=== PATIENT | male | born 1955 | race African-American/Black ===

== ENCOUNTER 2016-03-22 12:37 | Emergency (ER) | payer MEDICARE, MEDICAID ==
[~2016-03-22 12:37] MED LIST: Sodium Chloride 0.9% 1,000 ML BAG ONE
[2016-03-22] MEDS ORDERED: Ondansetron HCl/PF 4 MG/2 ML Vial ONE (13:16)
[2016-03-22 13:24] LABS: #Basophils 0.1 thou/uL (0.0-0.2); #Monocytes 0.4 thou/uL (0.11-0.59); #Neutrophils 6.3 thou/uL (1.40-6.50); %Eosinophils 0.4 % (0.0-10.0); %Lymphocytes 22.4 % (21.0-51.0); %Neutrophils 71.1 % (42.0-75.0); Mean Corpuscular HGB CONC 32.8 g/dL (32.0-36.0); Mean Corpuscular Hemoglobin 30.8 pg (27.0-31.0); Mean Corpuscular Volume 93.8 fl (80.0-94.0); Mean Platelet Volume 8.7 fL (7.4-10.4); Platelet Count 210 thou/uL (130-400); RBC Distribution Width 12.6 % (11.5-14.5); Red Blood Cell (RBC) Count 3.59 mill/uL (4.70-6.10); White Blood Cell (WBC) Count 8.8 thou/uL (4.8-10.8)
[2016-03-22 13:34] LABS: ALT (SGPT) 65 U/L (0-55); AST (SGOT) 58 U/L (5-34); Alkaline Phosphatase 266 U/L (40-150); Anion Gap 18 mmol/L (10-20); BUN (Urea Nitrogen) 12 mg/dL (8.4-25.7); Bilirubin, Total 1.8 mg/dL (0.2-1.2); Calc. Creatinine Clearance 0 mL/min (70-130); Calcium 6.9 mg/dL (7.8-10.44); Carbon Dioxide 21 mmol/L (22-29); Chloride 103 mmol/L (98-107); Estimated GFR-MDRD 51; Globulin 2.7 g/dL (2.4-3.5); Glucose 109 mg/dL (70-105); Potassium 3.7 mmol/L (3.5-5.1); Protein, Total 6.7 g/dL (6.0-8.3); Sodium 138 mmol/L (136-145)
[2016-03-22] MEDS ORDERED: Calcium Chloride 1 GM/10 ML Abboject SYRINGE ONE (14:04)
[2016-03-22] MEDS ORDERED: Magnesium Sulfate 2 GM/NS 0.9% 50 ML BAG ONE (15:30)
--- NOTE | 2016-03-22 16:27 | CT ---
CT ABDOMEN AND PELVIS NONCONTRAST 03/22/16 HISTORY: Abdominal pain. Vomiting. COMPARISON: 04/07/15 FINDINGS: There is now distention of the renal collecting systems, ureters, and urinary bladder, somewhat symm etric. Urinary bladder measures up to 19.2 cm in length. No radiopaque stones are evident. Lack of IV contrast limits evaluation for other abnormalities. Oral contrast was administered and ex tends through the bowel and into an ostomy bag in the right lower quadrant. Small nonobstructed para stomal hernia is apparent. Fluid distention of a rectal pouch is slightly greater than on the prior study. There are degenerati ve changes of the lumbar spine. IMPRESSION: 1. Right lower quadrant ileostomy with parastomal hernia. No evidence of obstruction. 2. Increasing fluid distention of the rectal pouch. 3. Urinary retention with markedly distended urinary bladder. POS: [facility]
--- NOTE | 2016-03-22 18:13 | ERRECORD ---
[facility] EMERGENCY RECORD HPI NAUSEA/VOMITING/DIARRHEA (12:58 SHAN) CHIEF COMPLAINT: Patient presents for evaluation of nausea, Patient presents for evaluation of vomiting, Patient presents for evaluation of since about 11:30 today;. HISTORIAN: History provided by patient, History provided by patient's family. TIME COURSE: Gradual onset of symptoms. EXACERBATED BY: Patient's condition exacerbated by nothing. RELIEVED BY: Patient's condition relieved by nothing. ROS (12:59 SHAN) CONSTITUTIONAL: Negative constitutional review of systems, Historian denies chills, denies fever. EYES: Negative eye review of systems. ENT: Negative ears, nose, throat review of systems. CARDIOVASCULAR: Negative cardiovascular review of systems, Historian denies chest pain, denies palpitations. RESPIRATORY: Negative respiratory review of systems, Historian denies cough, denies shortness of breath. GI: Negative gastrointestinal review of systems, Historian denies abdominal pain, Historian denies constipation, Historian denies diarrhea. Relates nausea and vomiting. MUSCULOSKELETAL: Negative musculoskeletal review of systems. SKIN: Negative skin review of systems. NEUROLOGIC: Negative neurologic review of systems. ENDOCRINE: Negative endocrine review of systems. HEMO/LYMPHATIC: Normal hematologic/lymphatic system review. PSYCHIATRIC: Negative psychiatric review of systems. NOTES: All other ROS is negative except as listed in HPI. PAST MEDICAL HISTORY MEDICAL HISTORY: Notes: SHORT BOWERL SYNDROME, Constipation, MR, SCHIZOEFFECTIVE,, Past medical history includes history of hypertension. Notes: recurrent ileus w/multiple hospitalizations, colectomy for constipation...ileal-rectal anastomosis, Conor Stevens and Vitor. Past medical history also includes heart disease, lysis of adhesions. Notes: small bowel resection, ileostomy, ARF and CKD. according to previous history, garden center manager not at bedside to confirm history (career developer was present at [place]). (12:48 MDEB) MALE SURGICAL HISTORY: 3 EXP LAP SURGERIES - 2005, AND 2009, Surgical history of cholecystectomy, Date of surgery 2005, COLON REMOVED./ ileostomy - RLQ according to previous history, garden center manager not at bedside to confirm history (career developer was present at [place]). COLOSTOMY. (12:48 MDEB) PSYCHIATRIC HISTORY: MR and schizoaffective according to previous history, garden center manager not at bedside to confirm history (career developer was present at [place]). (12:48 MDEB) SOCIAL HISTORY: Patient denies alcohol use, Patient denies drug &a-1R&a+25V*p+0X*v1218B*c202B*c15G*c2P*p-0X&a-25V&a+1R Name: Zac Valdes : 1955 M60 MedRec: [id number] AcctNum: [id number] Prepared: SunMar 22, 2016 18:23 by Interface Page 1 of 4 pMD [facility] EMERGENCY RECORD use, Patient has no smoking history, Patient has no smoking history, Patient denies alcohol use, Patient denies drug use, Social History includes lives with garden center manager. according to previous history, garden center manager not at bedside to confirm history (career developer was present at [place]). (12:48 MDEB) FAMILY HISTORY: Family history is non-contributory to this case. (12:48 MDEB) NOTES: I have reviewed and agree with the PMH/PSxH/FamHx/SocHx obtained by the nurse. (12:59 SHAN) KNOWN ALLERGIES ALLERGIES: (Unconfirmed) ceftriaxone sodium (Unconfirmed) FOOD ALLERGIES: (Unconfirmed) LATEX ALLERGY? (Unconfirmed) NKDA (Unconfirmed) No Known Allergies (Unconfirmed) No Known Drug Allergies CURRENT MEDICATIONS Super Thera Raheel M: TABLET : ORAL Patient Dose: 1 tab(s) Oral once a day (in the morning). (14:16 MDEB) OLANZapine: TABLET : Strength - 7.5 mg : ORAL Patient Dose: 7.5 mg Oral once a day. (14:16 MDEB) pantoprazole: TABLET, DELAYED RELEASE (ENTERIC COATED) : Strength - 40 mg : ORAL Patient Dose: 1 tab(s) Oral once a day. (14:17 MDEB) Lactinex: TABLET, CHEWABLE : Strength - 1 million cell : ORAL Patient Dose: 1 tab(s) Oral 2 times a day. (14:30 MDEB) Questran Light: POWDER IN PACKET (EA) : Strength - 4 gram : ORAL Patient Dose: 2 ea Oral 2 times a day. (14:32 MDEB) Boost: LIQUID (ML) : ORAL Patient Dose: 1 ea Oral once a day. (14:32 MDEB) morphine (PF) in NaCl, iso-osm: SYRINGE (ML) : Strength - 800 mg/20 mL (40 mg/mL) : [20 mL(s)] : INTRATHECAL Patient Dose: 0.6 mL Oral 4 times a day. (14:33 MDEB) magnesium oxide: TABLET : Strength - 400 mg : ORAL Patient Dose: 2 tab(s) Oral once a day. (14:34 MDEB) VITAL SIGNS (12:45 MDEB) VITAL SIGNS: BP: 139/67, Pulse: 65, Resp: 20, Temp: 98.4 (Tympanic), Pain: 6, O2 sat: 98 on Room Air, Time: 03/22/2016 12:45. &a-1R&a+25V*p+0X*e6642S*c202B*c15G*c2P*p-0X&a-25V&a+1R Name: Zac Valdes : 1955 M60 MedRec: [id number] AcctNum: [id number] Prepared: SunMar 22, 2016 18:23 by Interface Page 2 of 4 pMD [facility] EMERGENCY RECORD PHYSICAL EXAM (12:59 SHAN) CONSTITUTIONAL: Vital signs reviewed, Patient appears non toxic, Patient alert and oriented to person, place and time, Pt is in no apparent distress. HEAD: Head exam included findings of head atraumatic, normocephalic. EYES: Eye exam included findings of eyelids normal to inspection, Pupils equally round and reactive to light, Extraocular muscles intact. ENT: ENT exam normal, Nose exam normal, no nasal deformity, no bleeding from nares, Pharynx exam normal, Mouth exam normal, mucous membranes moist. NECK: Neck exam included findings of normal range of motion, Trachea midline. RESPIRATORY CHEST: Respiratory and chest exam normal, Breath sounds clear, No wheezing, No rales, Chest exam included findings of chest movement symmetrical, Chest expansion equal. CARDIOVASCULAR: Cardiovascular assessment normal, Cardiovascular exam included findings of heart rate regular rate and rhythm, Heart sounds normal. ABDOMEN MALE: Abdominal exam included findings of abdomen nontender, Bowel sounds normal, no mass, no pulsatile masses, no peritoneal signs, no rigidity, no guarding, no rebound, has right sided ileostomy. BACK: Back exam included findings of normal inspection, range of motion normal, no costovertebral angle tenderness. UPPER EXTREMITY: Upper extremity exam included findings of inspection normal, Range of motion normal. LOWER EXTREMITY: Lower extremity exam included findings of inspection normal, Range of motion normal. NEURO: Neuro exam findings include patient oriented to person, place and time, Speech with chronic stutter, no focal motor deficits, no focal sensory deficits. SKIN: Skin exam included findings of skin warm, dry, and normal in color. LYMPHATIC: Lymphatic exam normal. PSYCHIATRIC: Psychiatric exam included findings of patient oriented to person place and time, Normal affect. MEDICATION ADMINISTRATION SUMMARY Drug Name: *2 grams magsulfat in water (premixed 50, Dose Ordered: * , Route: IV Fluid Infusion, Status: Given, Time: 15:39 03/22/2016, Drug Name: Normal Saline, Dose Ordered: 1 L, Route: IV Fluid Infusion, Status: Given, Time: 14:20 03/22/2016, Drug Name: *calcium chloride intravenous, Dose Ordered: 1 g, Route: IV Fluid Infusion, Status: Given, Time: 14:05 03/22/2016, Drug Name: Normal Saline, Dose Ordered: 1000 mL, Route: IV Fluid Infusion, Status: Given, Time: 13:25 03/22/2016, &a-1R&a+25V*p+0X*z1689P*c202B*c15G*c2P*p-0X&a-25V&a+1R Name: Zac Valdes : 1955 M60 MedRec: [id number] AcctNum: [id number] Prepared: SunMar 22, 2016 18:23 by Interface Page 3 of 4 pMD [facility] EMERGENCY RECORD Drug Name: Zofran intravenous, Dose Ordered: 8 mg, Route: IV Push, Status: Given, Time: 13:20 03/22/2016, *Additional information available in notes, Detailed record available in Medication Service section. DOCTOR NOTES TEXT: Discussed with Dr. Rossi; plan to allow home care with early follow up; and he recommended labs prior to his office visit tomorrow. NO evidence of obstruction; suspect that problem was resolved in the past with the surgeries; now the issue is more of a short gut syndrome with calcium and magnesium and fluid loss problems. (16:49 SHAN) Adult male with multiple episodes of small bowel obstruction by history. Has ileostomy. Stutters markedly. Hx from patient and family limited. 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 (13:52 KENTON) Labs better; will procede with Dr. Rossi's recommendation. (17:56 KENTON) DATA REVIEWED: Lab data reviewed, Xray data reviewed, Reviewed EKG. (16:49 KENTON) Lab data reviewed, Xray data reviewed, Reviewed EKG. (17:56 KENTON) PROBLEM LIST No recorded problems DIAGNOSIS (17:54 KENTON) FINAL: PRIMARY: short gut syndrome, ADDITIONAL: dehydration with increased serum creatinine, hypocalemia, hypomagnasemia. PRESCRIPTION No recorded prescriptions DISPOSITION PATIENT: Disposition Type: Discharge, Disposition: *Discharge Home. (17:54 KENTON) Patient left the department. (18:15 DARIANA) Bone: DARIANA=NYA [place], [place] FUNG=MD Krupa, Magen &a-1R&a+25V*p+0X*[id number]*c202B*c15G*c2P*p-0X&a-25V&a+1R Name: Zac Valdes : 1955 M60 MedRec: [id number] AcctNum: [id number] Prepared: SunMar 22, 2016 18:23 by Interface Page 4 of 4 pMD [facility]TDD
--- NOTE | 2016-03-22 18:19 | PICIS ---
[facility] EMERGENCY RECORD COMMUNICATIONS (15:28 MDEB) COMMUNICATIONS: Critical lab value, received at 1523, received from MELINDA, Critical lab result: MAGNESIUM LESS THAN 0.7, given to DR GENTILE, results read back and verified, no orders received, 2 G MAG ORDERED. TRIAGE (12:48 MDEB) PATIENT: NAME: Zac Valdes, AGE: 60, GENDER: male, : Sat 1955, TIME OF GREET: SunMar 22, 2016 12:37, PREFERRED LANGUAGE: Welsh, RACE: Black or , ETHNICITY: Not or , ECODE BILLING MAP: [facility], SSN: [id number], Zip Code: [address], KG WEIGHT: 94.35, PHONE: , , , PERSON ID: [id number], PCP: MD Rossi Grover. (12:48 MDEB) TRIAGE NOTES: N/V X2 TODAY SINCE 11:30. (12:48 MDEB) COMPLAINT: VOMITING. (12:48 MDEB) ADMISSION: URGENCY: 3 Urgent, ADMISSION SOURCE: Home, TRANSPORT: Walk-in, BED: TRIAGE. (12:48 MDEB) PAIN: Patient complains of pain described as, aching, cramping, on a scale 0-10 patient rates pain as 6. (12:48 MDEB) IMMUNIZATIONS: Flu vaccine up to date, Tetanus immunization up to date. (12:48 MDEB) TRIAGE SCREENING: Patient denies suicidal ideation, Patient denies presence of domestic violence. (12:48 MDEB) PROVIDERS: TRIAGE NURSE: Africa Pierce RN. (12:48 MDEB) VITAL SIGNS: BP 139/67, Pulse 65, Resp 20, Temp 98.4, (Tympanic), Pain 6, O2 Sat 98, on Room Air, Time 03/22/2016 12:45. (12:45 MDEB) PREVIOUS VISIT ALLERGIES: ceftriaxone sodium. (12:48 MDEB) KNOWN ALLERGIES ALLERGIES: (Unconfirmed) ceftriaxone sodium (Unconfirmed) FOOD ALLERGIES: (Unconfirmed) LATEX ALLERGY? (Unconfirmed) NKDA (Unconfirmed) No Known Allergies (Unconfirmed) No Known Drug Allergies CURRENT MEDICATIONS Super Thera Raheel M: TABLET : ORAL Patient Dose: 1 tab(s) Oral once a day (in the morning). (14:16 MDEB) OLANZapine: TABLET : Strength - 7.5 mg : ORAL Patient Dose: 7.5 mg Oral once a day. (14:16 MDEB) pantoprazole: TABLET, DELAYED RELEASE (ENTERIC COATED) : Strength - 40 mg : ORAL Patient Dose: 1 tab(s) Oral once a day. (14:17 MDEB) &a-1R&a+25V*p+0X*k4850F*c202B*c15G*c2P*p-0X&a-25V&a+1R Name: Zac Valdes : 1955 M60 MedRec: [id number] AcctNum: [id number] Prepared: SunMar 22, 2016 18:30 by Interface Page 1 of 13 pMD [facility] EMERGENCY RECORD Lactinex: TABLET, CHEWABLE : Strength - 1 million cell : ORAL Patient Dose: 1 tab(s) Oral 2 times a day. (14:30 MDEB) Questran Light: POWDER IN PACKET (EA) : Strength - 4 gram : ORAL Patient Dose: 2 ea Oral 2 times a day. (14:32 MDEB) Boost: LIQUID (ML) : ORAL Patient Dose: 1 ea Oral once a day. (14:32 MDEB) morphine (PF) in NaCl, iso-osm: SYRINGE (ML) : Strength - 800 mg/20 mL (40 mg/mL) : [20 mL(s)] : INTRATHECAL Patient Dose: 0.6 mL Oral 4 times a day. (14:33 MDEB) magnesium oxide: TABLET : Strength - 400 mg : ORAL Patient Dose: 2 tab(s) Oral once a day. (14:34 MDEB) VITAL SIGNS (12:45 MDEB) VITAL SIGNS: BP: 139/67, Pulse: 65, Resp: 20, Temp: 98.4 (Tympanic), Pain: 6, O2 sat: 98 on Room Air, Time: 03/22/2016 12:45. NURSING ASSESSMENT: ABDOMEN (12:51 MDEB) CONSTITUTIONAL: Patient arrives ambulatory, Gait steady, History obtained from patient, Patient appears, uncomfortable, Patient cooperative, Patient alert, Oriented to person, place and time, Skin warm, Skin dry, Skin normal in color, Mucous membranes pink, Mucous membranes moist, Patient is well-groomed, Patient complains of N/V X 2 SINCE 11:30, PT WITH HX SHORT BOWEL SYNDROME. PAIN: cramping pain, on a scale 0-10 patient rates pain as 6, Pain exacerbated by nothing, Nothing has been tried to alleviate the pain. ABDOMEN: Abdomen assessment findings include abdomen symmetrical, Abdomen soft, Bowel sound normal, Associated with nausea, Associated with vomiting, history of vomiting, Number of times: 2, vomiting food. NOTES: Emotional support needed and given, Patient tolerated procedure well. SAFETY: Cart/Stretcher in lowest position, Family at bedside, Call light within reach, Hospital ID band on. NURSING PROCEDURE: SPOTLIGHT OPERATOR (12:48 MDEB) PATIENT IDENTIFIER: Patient actively involved in identification process, Patient's identity verified by patient stating name, Patient's identity verified by hospital ID bracelet. SPOTLIGHT OPERATOR: Patient placed on diagnostic cardiac sonographer, Heart rate: 65, showing sinus arrhythmia, Patient placed on non-invasive blood pressure monitor, Patient placed on continuous pulse oximetry. FOLLOW-UP: After procedure, alarms set and on, After procedure, &a-1R&a+25V*p+0X*x4578H*c202B*c15G*c2P*p-0X&a-25V&a+1R Name: Zac Valdes : 1955 M60 MedRec: [id number] AcctNum: [id number] Prepared: SunMar 22, 2016 18:30 by Interface Page 2 of 13 D [facility] EMERGENCY RECORD patient tolerating monitoring. NOTES: Emotional support needed and given, Patient tolerated procedure well. NURSING PROCEDURE: DISCHARGE NOTE (18:00 MDEB) DISCHARGE: Patient discharged to home, ambulating without assistance, family driving, accompanied by guardian, Summary of Care printed/ provided, Patient requested and was provided an electronic copy of Discharge Instructions, Transition record given to patient, Discharge instructions given to patient, Discharge instructions given to legal guardian, Simple or moderate discharge teaching performed, INCREASE SUPPLEMENT LEVELS, Above person(s) verbalized understanding of discharge instructions and follow-up care, Patient treated and evaluated by physician. BELONGINGS: Belongings remain with patient, Valuables remain with patient. NOTES: Emotional support needed and given, Patient tolerated procedure well. NURSING PROCEDURE: EKG CHART (14:52 MDEB) PATIENT IDENTIFIER: Patient actively involved in identification process, Patient's identity verified by patient stating name, Patient's identity verified by hospital ID bracelet. EKG: EKG indicated for HYPOCALCEMIA, 12 lead EKG performed on the left chest. FOLLOW-UP: After procedure, EKG for interpretation given to Dr. GENTILE. NOTES: Emotional support needed and given, Patient tolerated procedure well. SAFETY: Side rails up, Cart/Stretcher in lowest position, Family at bedside, Call light within reach, Hospital ID band on. NURSING PROCEDURE: IV PATIENT IDENITIFIER: Patient actively involved in identification process, Patient's identity verified by patient stating name, Patient's identity verified by hospital ID bracelet. (12:50 MDEB) Patient actively involved in identification process, Patient's identity verified by patient stating name, Patient's identity verified by hospital ID bracelet. (17:55 MDEB) IV SITE 1: IV therapy indicated for hydration, IV therapy indicated for medication administration, IV established, to the right forearm, using a 20 gauge catheter, in one attempt, IV site prepped with ALCOHOL, Saline lock established, Flushed with normal saline (mls): 10, Labs drawn at time of placement, labeled in the presence of the patient and sent to lab. (12:50 MDEB) FOLLOW-UP SITE 1: After procedure, sterile transparent dressing applied. (12:50 MDEB) IV discontinued, due to patient being discharged, catheter intact. (17:55 MDEB) NOTES: Emotional support needed and given, Patient tolerated &a-1R&a+25V*p+0X*k6837F*c202B*c15G*c2P*p-0X&a-25V&a+1R Name: Zac Valdes : 1955 M60 MedRec: [id number] AcctNum: [id number] Prepared: SunMar 22, 2016 18:30 by Interface Page 3 of 13 pMD [facility] EMERGENCY RECORD procedure well. (12:50 MDEB) Emotional support needed and given, Patient tolerated procedure well. (17:55 MDEB) SAFETY: Side rails up, Cart/Stretcher in lowest position, Family at bedside, Call light within reach, Hospital ID band on. (12:50 MDEB) NURSING PROCEDURE: NURSE NOTES NURSES NOTES: Notes: CALCIUM CHLORIDE ADDED TO EXISTING FLUIDS PER MD ORDER - WILL HANG SECOND LITER BEHIND THIS. (14:05 MDEB) Notes: PT TO RESTROOM TO URINATE FOLLOWING CT STUDY. (16:15 MDEB) NURSING PROCEDURE: TRANSPORT TO TESTS (16:00 MDEB) PATIENT IDENTIFIER: Patient actively involved in identification process, Patient's identity verified by patient stating name, Patient's identity verified by hospital ID bracelet. TRANSPORT TO TESTS: Transport indicated to facilitate diagnosis, Patient transported to CT scan, via wheelchair, Accompanied by x-ray cooling tower technician. NOTES: Emotional support needed and given, Patient tolerated procedure well. ORDER DETAILS Order Name: Calcium, Status: Active, Time: 16:46 03/22/2016, User: KENTON, - Ordered for: MD Gentile Stanley, - Entered by: MD Gentile Stanley - [facility] Mar 22, 2016 16:46, - Quantity: 1, Order Name: SPOTLIGHT OPERATOR ED, Status: Done, Time: 13:35 03/22/2016, User: DARIANA, - Ordered for: MD Gentile Stanley, - Entered by: MD Gentile Stanley - [facility] Mar 22, 2016 12:57, - Quantity: 1, Order Name: CBC with Differential, Status: Active, Time: 12:57 03/22/2016, User: KENTON, - Ordered for: MD Gentile Stanley, - Entered by: MD Gentile Stanley - [facility] Mar 22, 2016 12:57, - Quantity: 1, Order Name: Comprehensive Metabolic Panel, Status: Active, Time: 12:57 03/22/2016, User: KENTON, - Ordered for: MD Gentile Stanley, - Entered by: MD Gentile Stanley - [facility] Mar 22, 2016 12:57, - Quantity: 1, Order Name: Creatinine, Status: Active, Time: 16:46 03/22/2016, User: KENTON, - Ordered for: MD Gentile Stanley, - Entered by: MD Gentile Stanley - [facility] Mar 22, 2016 16:46, &a-1R&a+25V*p+0X*c3111L*c202B*c15G*c2P*p-0X&a-25V&a+1R Name: Zac Valdes : 1955 M60 MedRec: [id number] AcctNum: [id number] Prepared: SunMar 22, 2016 18:30 by Interface Page 4 of 13 D [facility] EMERGENCY RECORD - Quantity: 1, Order Name: CT Abdomen Pelvis W Con, Status: Canceled, Time: 15:57 03/22/2016, User: System, - Ordered for: MD Gentile Stanley, - Entered by: MD Gentile Stanley - [facility] Mar 22, 2016 13:54, - Quantity: 1, Order Name: EKG 12 Lead in Emergency Room, Status: Active, Time: 14:23 03/22/2016, User: KENTON, - Ordered for: MD Gentile Stanley, - Entered by: MD Gentile Stanley - [facility] Mar 22, 2016 14:23, - Quantity: 1, Order Name: Magnesium, Status: Active, Time: 16:45 03/22/2016, User: KENTON, - Ordered for: MD Gentile Stanley, - Entered by: MD Gentile Stanley - [facility] Mar 22, 2016 16:45, - Quantity: 1, Order Name: Magnesium, Status: Active, Time: 13:59 03/22/2016, User: KENTON, - Ordered for: MD Gentile Stanley, - Entered by: MD Gentile Stanley - [facility] Mar 22, 2016 13:59, - Quantity: 1, Order Name: SALINE LOCK, Status: Done, Time: 13:35 03/22/2016, User: DARIANA, - Ordered for: MD Gentile Stanley, - Entered by: MD Gentile Stanley - [facility] Mar 22, 2016 12:57, - Quantity: 1. MEDICATION ADMINISTRATION SUMMARY Drug Name: *2 grams magsulfat in water (premixed 50, Dose Ordered: * , Route: IV Fluid Infusion, Status: Given, Time: 15:39 03/22/2016, Drug Name: Normal Saline, Dose Ordered: 1 L, Route: IV Fluid Infusion, Status: Given, Time: 14:20 03/22/2016, Drug Name: *calcium chloride intravenous, Dose Ordered: 1 g, Route: IV Fluid Infusion, Status: Given, Time: 14:05 03/22/2016, Drug Name: Normal Saline, Dose Ordered: 1000 mL, Route: IV Fluid Infusion, Status: Given, Time: 13:25 03/22/2016, Drug Name: Zofran intravenous, Dose Ordered: 8 mg, Route: IV Push, Status: Given, Time: 13:20 03/22/2016, *Additional information available in notes, Detailed record available in Medication Service section. MEDICATION SERVICE 2 grams magsulfat in water (premixed 50ml): Free Text order: 2 grams magsulfat in water (premixed 50ml) : over 20 minutes : IV Fluid Infusion Ordered by: Magen Gentile MD Entered by: Magen Gentile MD SunMar 22, 2016 15:33 Documented as given by: Africa Pierce RN SunMar 22, 2016 15:39 Patient, Medication, Dose, Route and Time verified prior to &a-1R&a+25V*p+0X*d2273R*c202B*c15G*c2P*p-0X&a-25V&a+1R Name: Zac Valdes : 1955 M60 MedRec: [id number] AcctNum: [id number] Prepared: SunMar 22, 2016 18:30 by Interface Page 5 of 13 pMD [facility] EMERGENCY RECORD administration. Amount given: 2 G, initial medication, IV SITE #1 IVPB or drip, initial infusion, Premixed, via primary tubing, on an IV pump, Catheter placement confirmed via flush prior to administration, IV site without signs or symptoms of infiltration during medication administration, No swelling during administration, No drainage during administration, IV flushed after administration, Correct patient, time, route, dose and medication confirmed prior to administration, Patient advised of actions and side-effects prior to administration, Allergies confirmed and medications reviewed prior to administration, Patient in position of comfort, Side rails up, Cart in lowest position, Family at bedside. : Follow Up : _IV SITE #1:_, Medication infusion discontinued, on SunMar 22, 2016 16:30, 55 minutes, ., Total amount infused: 2 G, IV Line flushed after administration, Advised not to ambulate without assistance, Patient in position of comfort, Side rails up, Cart in lowest position, Family at bedside. (16:30 MDEB) calcium chloride intravenous: Order: calcium chloride intravenous (calcium chloride) - Dose: 1 g : IV Fluid Infusion Schedule: Bolus Notes: place in a liter normal saline bolus Ordered by: Magen Gentile MD Entered by: Magen Gentile MD SunMar 22, 2016 14:05 Documented as given by: Africa Pierce RN SunMar 22, 2016 14:05 Patient, Medication, Dose, Route and Time verified prior to administration. Amount given: 1 G, IV SITE #1 added to existing IV Fluid, Type: NS, Amount of fluid remainin ML, Catheter placement confirmed via flush prior to administration, IV site without signs or symptoms of infiltration during medication administration, No swelling during administration, No drainage during administration, IV flushed after administration, Correct patient, time, route, dose and medication confirmed prior to administration, Patient advised of actions and side-effects prior to administration, Allergies confirmed and medications reviewed prior to administration, Patient in position of comfort, Side rails up, Cart in lowest position. : Follow Up : _IV SITE #1:_, Medication infusion discontinued, on SunMar 22, 2016 14:20, 15 minutes, ., Total amount infused: 1 G, IV Line flushed after administration, Advised not to ambulate without assistance, Patient in position of comfort, Side rails up, Cart in lowest position, Family at bedside, MEDICATION WAS ADDED TO NS INFUSION PER MD ORDER. (14:20 MDEB) Normal Saline: Order: Normal Saline (0.9 % sodium chloride) - Dose: 1000 mL : IV Fluid Infusion Schedule: Bolus Ordered by: Magen Gentile MD Entered by: Magen Gentile MD SunMar 22, 2016 12:58 , Acknowledged by: Africa Pierce RN SunMar 22, 2016 13:14 Documented as given by: Africa Pierce RN SunMar 22, 2016 13:25 &a-1R&a+25V*p+0X*l6078F*c202B*c15G*c2P*p-0X&a-25V&a+1R Name: Zac Valdes : 1955 M60 MedRec: [id number] AcctNum: [id number] Prepared: SunMar 22, 2016 18:30 by Interface Page 6 of 13 pMD [facility] EMERGENCY RECORD Patient, Medication, Dose, Route and Time verified prior to administration. Amount given: 1000 ML, IV SITE #1 IV fluids established for hydration, IV SITE #1 into right forearm, IV SITE #1 1st bag hung, IV SITE #1 bolus of 1000 ml established, IV SITE #1 Rate of bolus, 1000 ml/hr, via primary tubing, IV SITE #1 on IV pump, Catheter placement confirmed via flush prior to administration, IV site without signs or symptoms of infiltration during medication administration, No swelling during administration, No drainage during administration, IV flushed after administration, Correct patient, time, route, dose and medication confirmed prior to administration, Patient advised of actions and side-effects prior to administration, Allergies confirmed and medications reviewed prior to administration, Patient in position of comfort, Side rails up, Cart in lowest position, Family at bedside. : Follow Up : _IV SITE #1:_, IV fluid infusion discontinued, on SunMar 22, 2016 14:20, 55 minutes, ., Total amount infused: 1000 ML, Advised not to ambulate without assistance, Patient in position of comfort, Side rails up, Cart in lowest position, Family at bedside. (14:20 MDMARINA) Normal Saline: Order: Normal Saline (0.9 % sodium chloride) - Dose: 1 L : IV Fluid Infusion Schedule: Bolus Ordered by: Magen Gentile MD Entered by: Magen Gentile MD SunMar 22, 2016 14:05 , Acknowledged by: Africa Pierce RN SunMar 22, 2016 14:10 Documented as given by: Africa Pierce RN SunMar 22, 2016 14:20 Patient, Medication, Dose, Route and Time verified prior to administration. Amount given: 1 L, IV SITE #1 IV fluids established for hydration, IV SITE #1 into right forearm, IV SITE #1 2nd bag hung, IV SITE #1 bolus of 1000 ml established, IV SITE #1 Rate of bolus, 1000 ml/hr, via primary tubing, IV SITE #1 on IV pump, Catheter placement confirmed via flush prior to administration, IV site without signs or symptoms of infiltration during medication administration, No swelling during administration, No drainage during administration, IV flushed after administration, Correct patient, time, route, dose and medication confirmed prior to administration, Patient advised of actions and side-effects prior to administration, Allergies confirmed and medications reviewed prior to administration, Patient in position of comfort, Side rails up, Cart in lowest position, Family at bedside. : Follow Up : _IV SITE #1:_, IV fluid infusion discontinued, on SunMar 22, 2016 15:30, Total fluid hydration time IV site 1 1 hour, 10 minutes, ., Total amount infused: 1000 ML, Advised not to ambulate without assistance, Patient in position of comfort, Side rails up, Cart in lowest position, Family at bedside. (15:30 DARIANA) Zofran intravenous: Order: Zofran intravenous (ondansetron HCl) - Dose: 8 mg : IV Push Schedule: Now &a-1R&a+25V*p+0X*o7953Y*c202B*c15G*c2P*p-0X&a-25V&a+1R Name: Zac Valdes : 1955 M60 MedRec: [id number] AcctNum: [id number] Prepared: SunMar 22, 2016 18:30 by Interface Page 7 of 13 pMD [facility] EMERGENCY RECORD Ordered by: Magen Gentile MD Entered by: Magen Gentile MD SunMar 22, 2016 12:58 , Acknowledged by: Africa Pierce RN SunMar 22, 2016 13:14 Documented as given by: Africa Pierce RN SunMar 22, 2016 13:20 Patient, Medication, Dose, Route and Time verified prior to administration. Amount wasted: 8 MG, IV SITE #1 IVP, initial medication, Slowly, Catheter placement confirmed via flush prior to administration, IV site without signs or symptoms of infiltration during medication administration, No swelling during administration, No drainage during administration, IV flushed after administration, Correct patient, time, route, dose and medication confirmed prior to administration, Patient advised of actions and side-effects prior to administration, Allergies confirmed and medications reviewed prior to administration, Patient in position of comfort, Side rails up, Cart in lowest position, Family at bedside. HPI NAUSEA/VOMITING/DIARRHEA (12:58 SHAN) CHIEF COMPLAINT: Patient presents for evaluation of nausea, Patient presents for evaluation of vomiting, Patient presents for evaluation of since about 11:30 today;. HISTORIAN: History provided by patient, History provided by patient's family. TIME COURSE: Gradual onset of symptoms. EXACERBATED BY: Patient's condition exacerbated by nothing. RELIEVED BY: Patient's condition relieved by nothing. ROS (12:59 SHAN) CONSTITUTIONAL: Negative constitutional review of systems, Historian denies chills, denies fever. EYES: Negative eye review of systems. ENT: Negative ears, nose, throat review of systems. CARDIOVASCULAR: Negative cardiovascular review of systems, Historian denies chest pain, denies palpitations. RESPIRATORY: Negative respiratory review of systems, Historian denies cough, denies shortness of breath. GI: Negative gastrointestinal review of systems, Historian denies abdominal pain, Historian denies constipation, Historian denies diarrhea. Relates nausea and vomiting. MUSCULOSKELETAL: Negative musculoskeletal review of systems. SKIN: Negative skin review of systems. NEUROLOGIC: Negative neurologic review of systems. ENDOCRINE: Negative endocrine review of systems. HEMO/LYMPHATIC: Normal hematologic/lymphatic system review. PSYCHIATRIC: Negative psychiatric review of systems. NOTES: All other ROS is negative except as listed in HPI. PAST MEDICAL HISTORY MEDICAL HISTORY: Notes: SHORT BOWERL SYNDROME, &a-1R&a+25V*p+0X*g0367F*c202B*c15G*c2P*p-0X&a-25V&a+1R Name: Zac Valdes : 1955 M60 MedRec: [id number] AcctNum: [id number] Prepared: SunMar 22, 2016 18:30 by Interface Page 8 of 13 pMD [facility] EMERGENCY RECORD Constipation, MR, SCHIZOEFFECTIVE,, Past medical history includes history of hypertension. Notes: recurrent ileus w/multiple hospitalizations, colectomy for constipation...ileal-rectal anastomosis, Conor Stevens and [facility]. Past medical history also includes heart disease, lysis of adhesions. Notes: small bowel resection, ileostomy, ARF and CKD. according to previous history, manager residential not at bedside to confirm history (senior caregiver was present at [facility]). (12:48 MDEB) MALE SURGICAL HISTORY: 3 EXP LAP SURGERIES - 2005, AND 2009, Surgical history of cholecystectomy, Date of surgery 2005, COLON REMOVED./ ileostomy - RLQ according to previous history, manager residential not at bedside to confirm history (senior caregiver was present at [facility]). COLOSTOMY. (12:48 MDEB) PSYCHIATRIC HISTORY: MR and schizoaffective according to previous history, manager residential not at bedside to confirm history (senior caregiver was present at [facility]). (12:48 MDEB) SOCIAL HISTORY: Patient denies alcohol use, Patient denies drug use, Patient has no smoking history, Patient has no smoking history, Patient denies alcohol use, Patient denies drug use, Social History includes lives with manager residential. according to previous history, manager residential not at bedside to confirm history (senior caregiver was present at [facility]). (12:48 MDEB) FAMILY HISTORY: Family history is non-contributory to this case. (12:48 MDEB) NOTES: I have reviewed and agree with the PMH/PSxH/FamHx/SocHx obtained by the nurse. (12:59 SHAN) PHYSICAL EXAM (12:59 SHAN) CONSTITUTIONAL: Vital signs reviewed, Patient appears non toxic, Patient alert and oriented to person, place and time, Pt is in no apparent distress. HEAD: Head exam included findings of head atraumatic, normocephalic. EYES: Eye exam included findings of eyelids normal to inspection, Pupils equally round and reactive to light, Extraocular muscles intact. ENT: ENT exam normal, Nose exam normal, no nasal deformity, no bleeding from nares, Pharynx exam normal, Mouth exam normal, mucous membranes moist. NECK: Neck exam included findings of normal range of motion, Trachea midline. RESPIRATORY CHEST: Respiratory and chest exam normal, Breath sounds clear, No wheezing, No rales, Chest exam included findings of chest movement symmetrical, Chest expansion equal. CARDIOVASCULAR: Cardiovascular assessment normal, Cardiovascular exam included findings of heart rate regular rate and rhythm, Heart sounds normal. ABDOMEN MALE: Abdominal exam included findings of abdomen nontender, Bowel sounds normal, no mass, no pulsatile masses, no peritoneal signs, no rigidity, no guarding, no rebound, has &a-1R&a+25V*p+0X*y3411S*c202B*c15G*c2P*p-0X&a-25V&a+1R Name: Zac Valdes : 1955 M60 MedRec: [id number] AcctNum: [id number] Prepared: SunMar 22, 2016 18:30 by Interface Page 9 of 13 pMD [facility] EMERGENCY RECORD right sided ileostomy. BACK: Back exam included findings of normal inspection, range of motion normal, no costovertebral angle tenderness. UPPER EXTREMITY: Upper extremity exam included findings of inspection normal, Range of motion normal. LOWER EXTREMITY: Lower extremity exam included findings of inspection normal, Range of motion normal. NEURO: Neuro exam findings include patient oriented to person, place and time, Speech with chronic stutter, no focal motor deficits, no focal sensory deficits. SKIN: Skin exam included findings of skin warm, dry, and normal in color. LYMPHATIC: Lymphatic exam normal. PSYCHIATRIC: Psychiatric exam included findings of patient oriented to person place and time, Normal affect. EVENTS TRANSFER: Triage to Emergency Triage. (SunMar 22, 2016 12:48 MDEB) Emergency Triage to Main ED -03. (12:49 MDEB) Removed from Emergency Main ED -03. (18:15 MDEB) DOCTOR NOTES TEXT: Discussed with Dr. Rossi; plan to allow home care with early follow up; and he recommended labs prior to his office visit tomorrow. NO evidence of obstruction; suspect that problem was resolved in the past with the surgeries; now the issue is more of a short gut syndrome with calcium and magnesium and fluid loss problems. (16:49 SHAN) Adult male with multiple episodes of small bowel obstruction by history. Has ileostomy. Stutters markedly. Hx from patient and family limited. 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 (13:52 SHAN) Labs better; will procede with Dr. Rossi's recommendation. (17:56 SHAN) DATA REVIEWED: Lab data reviewed, Xray data reviewed, Reviewed EKG. (16:49 SHAN) Lab data reviewed, Xray data reviewed, Reviewed EKG. (17:56 SHAN) PROBLEM LIST No recorded problems DIAGNOSIS (17:54 SHAN) FINAL: PRIMARY: short gut syndrome, ADDITIONAL: dehydration with increased serum creatinine, hypocalemia, hypomagnasemia. &a-1R&a+25V*p+0X*[id number]*c202B*c15G*c2P*p-0X&a-25V&a+1R Name: Zac Valdes : 1955 M60 MedRec: [id number] AcctNum: [id number] Prepared: SunMar 22, 2016 18:30 by Interface Page 10 of 13 pMD [facility] EMERGENCY RECORD DISPOSITION PATIENT: Disposition Type: Discharge, Disposition: *Discharge Home. (17:54 SHAN) Patient left the department. (18:15 MDEB) INSTRUCTION (17:56 SHAN) DISCHARGE: ELECTROLYTES. FO[facility]UP: [facility] [address] [place] [address], . SPECIAL: 1. increase tums to 2 three times a day 2. increase magnesium to 2 twice a day 3. obtain labs tomorrow am and see Dr. Rossi later tomorrow 4. return if problems develop. PRESCRIPTION No recorded prescriptions IMAGING HOME MEDS: Image captured from scanner. (14:42 MDEB) *EKG: Image captured from scanner. (14:57 MDEB) *DISCHARGE INSTRUCTIONS RECEIPT: Image captured from scanner. (18:06 MDEB) *SUPPLY CHARGE SHEET: Image captured from scanner. (18:07 MDEB) VITAL SIGNS: Image captured from scanner. (18:15 MDEB) Page 2 added. Image captured from scanner. (18:15 MDEB) ADMIN (17:57 SHAN) DIGITAL SIGNATURE: MD Krupa, Magen. RESULTS RADIOLOGY: CT Abdomen Pelvis WO Con Observe DT: SunMar 22, 2016 13:56, ABDPELWO CT ABDOMEN AND PELVIS NONCONTRAST 03/22/16 HISTORY: Abdominal pain. Vomiting. COMPARISON: 04/07/15 FINDINGS: There is now distention of the renal collecting systems, ureters, and urinary bladder, somewhat symm etric. Urinary bladder measures up to 19.2 cm in length. No radiopaque stones are evident. Lack of IV contrast limits evaluation for other abnormalities. Oral &a-1R&a+25V*p+0X*r1748Z*c202B*c15G*c2P*p-0X&a-25V&a+1R Name: Zac Valdes : 1955 M60 MedRec: [id number] AcctNum: [id number] Prepared: SunMar 22, 2016 18:30 by Interface Page 11 of 13 pMD [facility] EMERGENCY RECORD contrast was administered and ex tends through the bowel and into an ostomy bag in the right lower quadrant. Small nonobstructed para stomal hernia is apparent. Fluid distention of a rectal pouch is slightly greater than on the prior study. There are degenerati ve changes of the lumbar spine. IMPRESSION: 1. Right lower quadrant ileostomy with parastomal hernia. No evidence of obstruction. 2. Increasing fluid distention of the rectal pouch. 3. Urinary retention with markedly distended urinary bladder. POS: H . (16:35 SHAN) LABORATORY: CBC with Differential Collection DT: SunMar 22, 2016 13:13, White Blood Cell (WBC) Count 8.8 thou/uL, Range (4.8-10.8), *Red Blood Cell (RBC) Count 3.59 - L mill/uL, Range (4.70-6.10), *Hemoglobin 11.0 - L g/dL, Range (14.0-18.0), *Hematocrit 33.6 - L %, Range (42.0-52.0), Mean Corpuscular Volume 93.8 fl, Range (80.0-94.0), Mean Corpuscular Hemoglobin 30.8 pg, Range (27.0-31.0), Mean Corpuscular HGB CONC 32.8 g/dL, Range (32.0-36.0), RBC Distribution Width 12.6 %, Range (11.5-14.5), Platelet Count 210 thou/uL, Range (130-400), Mean Platelet Volume 8.7 fL, Range (7.4-10.4), %Neutrophils 71.1 %, Range (42.0-75.0), %Lymphocytes 22.4 %, Range (21.0-51.0), %Monocytes 5.0 %, Range (0.0-10.0), %Eosinophils 0.4 %, Range (0.0-10.0), %Basophils 1.0 %, Range (0.0-1.0), #Neutrophils 6.3 thou/uL, Range (1.40-6.50), #Lymphocytes 2.0 thou/uL, Range (1.20-3.40), #Monocytes 0.4 thou/uL, Range (0.11-0.59), #Eosinphils 0.0 thou/uL, Range (0.0-0.7), #Basophils 0.1 thou/uL, Range (0.0-0.2). (13:27 SHAN) Comprehensive Metabolic Panel Collection DT: SunMar 22, 2016 13:13, Sodium 138 mmol/L, Range (136-145), Potassium 3.7 mmol/L, Range (3.5-5.1), Chloride 103 mmol/L, Range (98-107), *Carbon Dioxide 21 - L mmol/L, Range (22-29), Anion Gap 18 mmol/L, Range (10-20), BUN (Urea Nitrogen) 12 mg/dL, Range (8.4-25.7), *Creatinine 1.67 - H mg/dL, Range (0.7-1.3), Estimated GFR-MDRD 51 , Reference Range for Estimated GFR: Greater than 90, mL/min/1.73 m2 &a-1R&a+25V*p+0X*b0683K*c202B*c15G*c2P*p-0X&a-25V&a+1R Name: Zac Valdes : 1955 M60 MedRec: [id number] AcctNum: [id number] Prepared: SunMar 22, 2016 18:30 by Interface Page 12 of 13 pMD [facility] EMERGENCY RECORD NOTE: The MDRD equation has not been validated for use, with the elderly (over 70 years of age), women, patients with, serious comorbid condition or persons with extremes of body size, muscle, mass, or nutritional status. , *Glucose 109 - H mg/dL, Range (70-105), *Calcium 6.9 - L mg/dL, Range (7.8-10.44), *Bilirubin, Total 1.8 - H mg/dL, Range (0.2-1.2), Protein, Total 6.7 g/dL, Range (6.0-8.3), NOTE: Plasma values are generally 0.3 to 0.5 g/dL higher than serum values, due to the presence of fibrinogen. , Albumin 4.0 g/dL, Range (3.5-5.0), Globulin 2.7 g/dL, Range (2.4-3.5), Alb/Glob Ratio 1.5 g/dL, Range (1.2-2.2), *Alkaline Phosphatase 266 - H U/L, Range (40-150), *AST (SGOT) 58 - H U/L, Range (5-34), *ALT (SGPT) 65 - H U/L, Range (0-55). (13:55 DARIANA) Magnesium Collection DT: SunMar 22, 2016 14:05, *Magnesium Less than 0.7 - L mg/dL, Range (1.6-2.6), CALLED TO AND VRB FROM [place] PIERCE RN IN ER AT 1530 03-22-16/MAD.[facility]. (15:37 KENTON) Bone: DARIANA=[place]A [place], [place] FUNG=MD Krupa, Magen &a-1R&a+25V*p+0X*x4970U*c202B*c15G*c2P*p-0X&a-25V&a+1R Name: Zac Valdes : 1955 M60 MedRec: [id number] AcctNum: [id number] Prepared: SunMar 22, 2016 18:30 by Interface Page 13 of 13 pMD [facility]TDD
== END 2016-03-22 18:00 | disposition home or self-care (01) ==
LOC: MADERS 12:37
DX: K91.2 Postsurgical malabsorption, not elsewhere classified (principal); E83.51 Hypocalcemia; E83.42 Hypomagnesemia; I12.9 Hypertensive chronic kidney disease with stage 1 through stage 4 chronic kidney disease, or unspecified chronic kidney disease; N18.9 Chronic kidney disease, unspecified
CPT/HCPCS: 36415; 74176; 80053; 83735; 85025; 93005; 96361; 96365; 96375; J2405; J3475; J7050

== ENCOUNTER 2016-04-05 07:57 | Outpatient (CLI) | payer MEDICARE, MEDICAID ==
[2016-04-05 08:50] LABS: ALT (SGPT) 70 U/L (0-55); AST (SGOT) 70 U/L (5-34); Albumin 4.5 g/dL (3.5-5.0); Alkaline Phosphatase 305 U/L (40-150); Anion Gap 19 mmol/L (10-20); BUN (Urea Nitrogen) 15 mg/dL (8.4-25.7); Bilirubin, Total 2.2 mg/dL (0.2-1.2); Calc. Creatinine Clearance 0 mL/min (70-130); Calcium 8.7 mg/dL (7.8-10.44); Carbon Dioxide 25 mmol/L (22-29); Chloride 101 mmol/L (98-107); Estimated GFR-MDRD 52; Globulin 3.1 g/dL (2.4-3.5); Glucose 97 mg/dL (70-105); Potassium 4.4 mmol/L (3.5-5.1); Protein, Total 7.6 g/dL (6.0-8.3); Sodium 141 mmol/L (136-145)
== END 2016-04-05 07:58 | disposition home or self-care (01) ==
LOC: MADLABBHPM 07:57
PROVIDERS: ATTEND Family Medicine
DX: Z48.815 Encounter for surgical aftercare following surgery on the digestive system (principal); Z93.2 Ileostomy status
CPT/HCPCS: 36415; 80053

== ENCOUNTER 2016-04-27 09:23 | Emergency (ER) | payer MEDICARE, MEDICAID ==
[2016-04-27] MEDS ORDERED: Ondansetron ODT 4 MG TAB ONE (09:42)
== END 2016-04-27 10:52 | disposition home or self-care (01) ==
LOC: MADERS 09:23
DX: K52.9 Noninfective gastroenteritis and colitis, unspecified (principal); I12.9 Hypertensive chronic kidney disease with stage 1 through stage 4 chronic kidney disease, or unspecified chronic kidney disease; N18.9 Chronic kidney disease, unspecified; Z90.49 Acquired absence of other specified parts of digestive tract; Z79.899 Other long term (current) drug therapy
CPT/HCPCS: 99283; Q0162

== ENCOUNTER 2016-05-11 07:02 | Outpatient (CLI) | payer MEDICARE, MEDICAID ==
[2016-05-11 08:13] LABS: ALT (SGPT) 314 U/L (0-55); AST (SGOT) 131 U/L (5-34); Albumin 4.4 g/dL (3.5-5.0); Alkaline Phosphatase 379 U/L (40-150); Anion Gap 17 mmol/L (10-20); BUN (Urea Nitrogen) 24 mg/dL (8.4-25.7); Bilirubin, Total 1.8 mg/dL (0.2-1.2); Calc. Creatinine Clearance 0 mL/min (70-130); Calcium 10.7 mg/dL (7.8-10.44); Carbon Dioxide 31 mmol/L (22-29); Chloride 90 mmol/L (98-107); Estimated GFR-MDRD 37; Glucose 141 mg/dL (70-105); Magnesium 1.2 mg/dL (1.6-2.6); Potassium 3.3 mmol/L (3.5-5.1); Protein, Total 7.8 g/dL (6.0-8.3); Sodium 135 mmol/L (136-145)
== END 2016-05-11 07:03 ==
LOC: MADLABBHPM 07:02
PROVIDERS: ATTEND Family Medicine
DX: E83.51 Hypocalcemia (principal); E83.42 Hypomagnesemia; R79.89 Other specified abnormal findings of blood chemistry
CPT/HCPCS: 36415; 80048; 80076; 83735

== ENCOUNTER 2016-06-04 16:21 | Emergency (ER) | payer MEDICARE, MEDICAID ==
[2016-06-04] MEDS ORDERED: Metoclopramide HCl 10 MG/2 ML VIAL ONE (16:49)
[2016-06-04 17:17] LABS: Hemoglobin 13.5 g/dL (14.0-18.0); Mean Corpuscular HGB CONC 34.2 g/dL (32.0-36.0); Mean Corpuscular Hemoglobin 30.4 pg (27.0-31.0); Mean Corpuscular Volume 88.9 fl (80.0-94.0); Mean Platelet Volume 8.2 fL (7.4-10.4); Platelet Count 295 thou/uL (130-400); RBC Distribution Width 11.6 % (11.5-14.5); Red Blood Cell (RBC) Count 4.42 mill/uL (4.70-6.10); White Blood Cell (WBC) Count 9.4 thou/uL (4.8-10.8)
[2016-06-04 17:18] LABS: Band 5 % (5-11); Lymphocytes 12 % (21-51); Monocytes 3 % (0-10); Neutrophil 80 % (42-75)
[2016-06-04 17:26] LABS: ALT (SGPT) 69 U/L (0-55); AST (SGOT) 69 U/L (5-34); Albumin 4.4 g/dL (3.5-5.0); Alkaline Phosphatase 198 U/L (40-150); Anion Gap 24 mmol/L (10-20); BUN (Urea Nitrogen) 31 mg/dL (8.4-25.7); Bilirubin, Total 0.9 mg/dL (0.2-1.2); Calc. Creatinine Clearance 0 mL/min (70-130); Calcium 8.8 mg/dL (7.8-10.44); Carbon Dioxide 24 mmol/L (22-29); Chloride 95 mmol/L (98-107); Estimated GFR-MDRD 24; Globulin 3.6 g/dL (2.4-3.5); Glucose 116 mg/dL (70-105); Potassium 4.4 mmol/L (3.5-5.1); Sodium 139 mmol/L (136-145)
[2016-06-04] MEDS ORDERED: Promethazine HCl 25 MG/ML VIAL ONE (17:43)
[2016-06-04] MEDS ORDERED: Ondansetron HCl/PF 4 MG/2 ML Vial ONE (18:04)
[2016-06-04 19:19] LABS: Amylase 106 U/L (25-125); Lipase 31 U/L (8-78)
--- NOTE | 2016-06-04 21:17 | CT ---
CT ABDOMEN AND PELVIS NONCONTRAST: History: Abdominal pain. Bilateral flank pain. Comparison: 04-29-16 FINDINGS: Each renal collecting system and ureter are decompressed without stone apparent. Urinary bladder is unremarkable. Lack of contrast limits evaluation for other abnormalities. The gallbladder is surgically absent. Ex tensive post-operative changes of the abdomen are demonstrated. Oral contrast was reportedly adminis tered. A small amount is seen within the distal most portion of the ileum and the ileostomy. No sheila l dilatation is apparent. Fluid distention of the rectal pouch persists with a small amount of hyper dense material within the dependent portion. IMPRESSION: 1. No CT evidence of urinary tract obstruction or calcifications. 2. Post-operative changes with right lower quadrant ileostomy. No evidence of bowel obstruction. Per sistent fluid distention of the rectal pouch is similar in appearance to the prior exam. POS: [facility]
== END 2016-06-04 21:32 | disposition home or self-care (01) ==
LOC: MADERS 16:21
DX: R11.2 Nausea with vomiting, unspecified (principal); I10 Essential (primary) hypertension; Z79.899 Other long term (current) drug therapy
CPT/HCPCS: 36415; 74176; 80053; 82150; 83690; 85025; 96361; 96374; 96375; J2405; J2550; J2765; J7050

== ENCOUNTER 2016-06-06 07:43 | Outpatient (CLI) | payer MEDICARE, MEDICAID ==
[2016-06-06 08:04] LABS: #Basophils 0.1 thou/uL (0.0-0.2); #Eosinphils 0.3 thou/uL (0.0-0.7); #Monocytes 0.5 thou/uL (0.11-0.59); #Neutrophils 4.3 thou/uL (1.40-6.50); %Basophils 0.8 % (0.0-1.0); %Eosinophils 3.5 % (0.0-10.0); %Lymphocytes 36.8 % (21.0-51.0); %Monocytes 5.6 % (0.0-10.0); %Neutrophils 53.3 % (42.0-75.0); Hemoglobin 10.9 g/dL (14.0-18.0); Mean Corpuscular HGB CONC 33.6 g/dL (32.0-36.0); Mean Corpuscular Hemoglobin 30.3 pg (27.0-31.0); Mean Corpuscular Volume 90.4 fl (80.0-94.0); Mean Platelet Volume 7.2 fL (7.4-10.4); Platelet Count 204 thou/uL (130-400); RBC Distribution Width 11.2 % (11.5-14.5); White Blood Cell (WBC) Count 8.2 thou/uL (4.8-10.8)
[2016-06-06 08:26] LABS: Anion Gap 19 mmol/L (10-20)
[2016-06-06 09:43] LABS: ALT (SGPT) 114 U/L (0-55); AST (SGOT) 83 U/L (5-34); Albumin 4.2 g/dL (3.5-5.0); Alkaline Phosphatase 273 U/L (40-150); BUN (Urea Nitrogen) 47 mg/dL (8.4-25.7); Bilirubin, Direct 0.9 mg/dL (0.1-0.3); Bilirubin, Total 2.3 mg/dL (0.2-1.2); Calc. Creatinine Clearance 0 mL/min (70-130); Calcium 7.2 mg/dL (7.8-10.44); Carbon Dioxide 30 mmol/L (22-29); Chloride 84 mmol/L (98-107); Estimated GFR-MDRD 10; Glucose 101 mg/dL (70-105); Potassium 3.3 mmol/L (3.5-5.1); Protein, Total 7.1 g/dL (6.0-8.3); Sodium 130 mmol/L (136-145)
[2016-06-06 09:55] LABS: Magnesium Less than 0.7 mg/dL (1.6-2.6)
[2016-06-06 17:39] LABS: Creatinine, Urine 230.11 mg/dL (63-166)
== END 2016-06-06 07:44 | disposition home or self-care (01) ==
LOC: MADLABBHPM 07:43
PROVIDERS: ATTEND Internal Medicine Nephrology
DX: K91.2 Postsurgical malabsorption, not elsewhere classified (principal)
CPT/HCPCS: 36415; 80048; 80076; 82570; 83735; 84156; 85025

== ENCOUNTER 2016-06-16 10:03 | Outpatient (CLI) | payer MEDICARE, MEDICAID ==
[2016-06-16 11:08] LABS: Anion Gap 16 mmol/L (10-20); BUN (Urea Nitrogen) 14 mg/dL (8.4-25.7); Calc. Creatinine Clearance 0 mL/min (70-130); Carbon Dioxide 25 mmol/L (22-29); Chloride 103 mmol/L (98-107); Estimated GFR-MDRD 46; Glucose 65 mg/dL (70-105); Potassium 4.8 mmol/L (3.5-5.1); Sodium 139 mmol/L (136-145)
== END 2016-06-16 10:04 | disposition home or self-care (01) ==
LOC: MADLAB 10:03
PROVIDERS: ATTEND Internal Medicine Nephrology
DX: N18.3 Chronic kidney disease, stage 3 (moderate) (principal)
CPT/HCPCS: 36415; 80048

== ENCOUNTER 2016-06-26 07:23 | Outpatient (CLI) | payer MEDICARE, MEDICAID ==
[2016-06-26 10:04] LABS: Anion Gap 20 mmol/L (10-20); BUN (Urea Nitrogen) 25 mg/dL (8.4-25.7); Calc. Creatinine Clearance 0 mL/min (70-130); Carbon Dioxide 25 mmol/L (22-29); Chloride 93 mmol/L (98-107); Estimated GFR-MDRD 31; Glucose 83 mg/dL (70-105); Sodium 134 mmol/L (136-145)
== END 2016-06-26 07:24 | disposition home or self-care (01) ==
LOC: MADLAB 07:23
PROVIDERS: ATTEND Internal Medicine Nephrology
DX: N18.3 Chronic kidney disease, stage 3 (moderate) (principal)
CPT/HCPCS: 36415; 80048

== ENCOUNTER 2016-07-05 07:38 | Outpatient (CLI) | payer MEDICARE, MEDICAID ==
[2016-07-05 08:46] LABS: Anion Gap 19 mmol/L (10-20); BUN (Urea Nitrogen) 19 mg/dL (8.4-25.7); Calc. Creatinine Clearance 0 mL/min (70-130); Calcium 11.1 mg/dL (7.8-10.44); Carbon Dioxide 30 mmol/L (22-29); Chloride 93 mmol/L (98-107); Estimated GFR-MDRD 38; Glucose 106 mg/dL (70-105); Potassium 3.9 mmol/L (3.5-5.1); Sodium 138 mmol/L (136-145)
[2016-07-05 09:01] LABS: #Basophils 0.1 thou/uL (0.0-0.2); #Eosinphils 0.1 thou/uL (0.0-0.7); #Lymphocytes 1.8 thou/uL (1.20-3.40); #Monocytes 0.4 thou/uL (0.11-0.59); #Neutrophils 6.4 thou/uL (1.40-6.50); %Basophils 0.7 % (0.0-1.0); %Eosinophils 1.2 % (0.0-10.0); %Lymphocytes 20.8 % (21.0-51.0); %Monocytes 4.3 % (0.0-10.0); Hemoglobin 11.4 g/dL (14.0-18.0); Mean Corpuscular HGB CONC 32.4 g/dL (32.0-36.0); Mean Corpuscular Hemoglobin 29.8 pg (27.0-31.0); Mean Corpuscular Volume 92.1 fl (80.0-94.0); Mean Platelet Volume 8.2 fL (7.4-10.4); Platelet Count 241 thou/uL (130-400); RBC Distribution Width 12.4 % (11.5-14.5); Red Blood Cell (RBC) Count 3.82 mill/uL (4.70-6.10); White Blood Cell (WBC) Count 8.8 thou/uL (4.8-10.8)
== END 2016-07-05 07:39 | disposition home or self-care (01) ==
LOC: MADLABBHPM 07:38
PROVIDERS: ATTEND Internal Medicine Nephrology
DX: N18.3 Chronic kidney disease, stage 3 (moderate) (principal); K91.2 Postsurgical malabsorption, not elsewhere classified
CPT/HCPCS: 36415; 80048; 85025

== ENCOUNTER 2016-07-18 07:22 | Outpatient (CLI) | payer MEDICARE, MEDICAID ==
[2016-07-18 08:31] LABS: Anion Gap 16 mmol/L (10-20); BUN (Urea Nitrogen) 19 mg/dL (8.4-25.7); Calc. Creatinine Clearance 0 mL/min (70-130); Calcium 9.7 mg/dL (7.8-10.44); Carbon Dioxide 22 mmol/L (22-29); Chloride 101 mmol/L (98-107); Estimated GFR-MDRD 47; Glucose 105 mg/dL (70-105); Potassium 3.5 mmol/L (3.5-5.1); Sodium 135 mmol/L (136-145)
[2016-07-18 11:32] LABS: Magnesium 1.3 mg/dL (1.6-2.6)
== END 2016-07-18 07:23 | disposition home or self-care (01) ==
LOC: MADLAB 07:22
PROVIDERS: ATTEND Internal Medicine Nephrology
DX: N18.3 Chronic kidney disease, stage 3 (moderate) (principal)
CPT/HCPCS: 36415; 80048; 83735

== ENCOUNTER 2016-07-26 07:41 | Outpatient (CLI) | payer MEDICARE, MEDICAID ==
[2016-07-26 08:38] LABS: Anion Gap 14 mmol/L (10-20); BUN (Urea Nitrogen) 15 mg/dL (8.4-25.7); Calc. Creatinine Clearance 0 mL/min (70-130); Calcium 8.8 mg/dL (7.8-10.44); Carbon Dioxide 26 mmol/L (22-29); Chloride 97 mmol/L (98-107); Estimated GFR-MDRD 51; Glucose 80 mg/dL (70-105); Potassium 4.6 mmol/L (3.5-5.1); Sodium 132 mmol/L (136-145)
== END 2016-07-26 07:42 ==
LOC: MADLABBHPM 07:41
PROVIDERS: ATTEND Family Medicine
DX: K91.2 Postsurgical malabsorption, not elsewhere classified (principal)
CPT/HCPCS: 36415; 80048

== ENCOUNTER 2016-08-21 10:55 | Outpatient (CLI) | payer MEDICARE, MEDICAID ==
[2016-08-21 13:16] LABS: ALT (SGPT) 82 U/L (8-55); AST (SGOT) 46 U/L (5-34); Albumin 4.2 g/dL (3.5-5.0); Alkaline Phosphatase 499 U/L (40-150); Anion Gap 11 mmol/L (10-20); BUN (Urea Nitrogen) 38 mg/dL (8.4-25.7); Bilirubin, Total 0.9 mg/dL (0.2-1.2); Calc. Creatinine Clearance 0 mL/min (70-130); Calcium 9.7 mg/dL (7.8-10.44); Carbon Dioxide 24 mmol/L (22-29); Chloride 106 mmol/L (98-107); Estimated GFR-MDRD 43; Globulin 3.2 g/dL (2.4-3.5); Glucose 120 mg/dL (70-105); Magnesium 2.2 mg/dL (1.6-2.6); Phosphorus 3.9 mg/dL (2.3-4.7); Potassium 4.7 mmol/L (3.5-5.1); Protein, Total 7.4 g/dL (6.0-8.3); Sodium 136 mmol/L (136-145); Triglycerides 55 mg/dL (Less than 150)
[2016-08-21 13:34] LABS: #Basophils 0.1 thou/uL (0.0-0.2); #Eosinphils 0.2 thou/uL (0.0-0.7); #Lymphocytes 1.4 thou/uL (1.20-3.40); #Monocytes 0.4 thou/uL (0.11-0.59); #Neutrophils 9.1 thou/uL (1.40-6.50); %Basophils 0.5 % (0.0-1.0); %Eosinophils 1.4 % (0.0-10.0); %Lymphocytes 12.3 % (21.0-51.0); %Monocytes 3.6 % (0.0-10.0); %Neutrophils 82.2 % (42.0-75.0); Hemoglobin 9.7 g/dL (14.0-18.0); Mean Corpuscular HGB CONC 31.8 g/dL (32.0-36.0); Mean Corpuscular Hemoglobin 30.4 pg (27.0-31.0); Mean Corpuscular Volume 95.6 fl (80.0-94.0); Mean Platelet Volume 7.4 fL (7.4-10.4); Platelet Count 254 thou/uL (130-400); RBC Distribution Width 13.4 % (11.5-14.5); Red Blood Cell (RBC) Count 3.18 mill/uL (4.70-6.10)
== END 2016-08-21 10:56 | disposition home or self-care (01) ==
LOC: MADLABBHPM 10:55
PROVIDERS: ATTEND Family Medicine
DX: D63.1 Anemia in chronic kidney disease (principal); N18.3 Chronic kidney disease, stage 3 (moderate); K91.2 Postsurgical malabsorption, not elsewhere classified
CPT/HCPCS: 36415; 80053; 83735; 84100; 84134; 84478; 85025

== ENCOUNTER 2016-08-28 09:32 | Outpatient (CLI) | payer MEDICARE, MEDICAID ==
[2016-08-28 09:47] LABS: #Basophils 0.1 thou/uL (0.0-0.2); #Eosinphils 0.2 thou/uL (0.0-0.7); #Monocytes 0.5 thou/uL (0.11-0.59); #Neutrophils 13.3 thou/uL (1.40-6.50); %Basophils 0.5 % (0.0-1.0); %Eosinophils 1.3 % (0.0-10.0); %Lymphocytes 6.7 % (21.0-51.0); %Monocytes 3.5 % (0.0-10.0); Hemoglobin 9.4 g/dL (14.0-18.0); Mean Corpuscular HGB CONC 32.4 g/dL (32.0-36.0); Mean Corpuscular Hemoglobin 31.1 pg (27.0-31.0); Platelet Count 340 thou/uL (130-400); RBC Distribution Width 13.4 % (11.5-14.5); Red Blood Cell (RBC) Count 3.01 mill/uL (4.70-6.10); White Blood Cell (WBC) Count 15.1 thou/uL (4.8-10.8)
[2016-08-28 10:14] LABS: ALT (SGPT) 104 U/L (8-55); AST (SGOT) 44 U/L (5-34); Albumin 4.1 g/dL (3.5-5.0); Alkaline Phosphatase 613 U/L (40-150); Anion Gap 14 mmol/L (10-20); BUN (Urea Nitrogen) 18 mg/dL (8.4-25.7); Bilirubin, Total 1.2 mg/dL (0.2-1.2); Calc. Creatinine Clearance 0 mL/min (70-130); Calcium 9.9 mg/dL (7.8-10.44); Carbon Dioxide 18 mmol/L (22-29); Chloride 110 mmol/L (98-107); Estimated GFR-MDRD 55; Globulin 3.5 g/dL (2.4-3.5); Glucose 99 mg/dL (70-105); Magnesium 2.1 mg/dL (1.6-2.6); Phosphorus 3.2 mg/dL (2.3-4.7); Potassium 4.9 mmol/L (3.5-5.1); Protein, Total 7.6 g/dL (6.0-8.3); Sodium 137 mmol/L (136-145); Triglycerides 50 mg/dL (Less than 150)
== END 2016-08-28 09:33 | disposition home or self-care (01) ==
LOC: MADLABBHPM 09:32
PROVIDERS: ATTEND Family Medicine
DX: N18.3 Chronic kidney disease, stage 3 (moderate) (principal); D63.1 Anemia in chronic kidney disease; K91.3 Postprocedural intestinal obstruction
CPT/HCPCS: 36415; 80053; 83735; 84100; 84478; 85025

== ENCOUNTER 2016-09-04 20:04 | Outpatient (CLI) | payer MEDICARE, MEDICAID ==
[2016-09-04 20:28] LABS: ALT (SGPT) 70 U/L (8-55); AST (SGOT) 29 U/L (5-34); Albumin 3.6 g/dL (3.5-5.0); Alkaline Phosphatase 551 U/L (40-150); Anion Gap 13 mmol/L (10-20); BUN (Urea Nitrogen) 17 mg/dL (8.4-25.7); Bilirubin, Total 0.9 mg/dL (0.2-1.2); Calc. Creatinine Clearance 0 mL/min (70-130); Calcium 9.1 mg/dL (7.8-10.44); Carbon Dioxide 20 mmol/L (22-29); Chloride 110 mmol/L (98-107); Estimated GFR-MDRD 61; Globulin 3.2 g/dL (2.4-3.5); Glucose 92 mg/dL (70-105); Magnesium 1.6 mg/dL (1.6-2.6); Phosphorus 3.1 mg/dL (2.3-4.7); Potassium 4.4 mmol/L (3.5-5.1); Protein, Total 6.8 g/dL (6.0-8.3); Sodium 139 mmol/L (136-145); Triglycerides 54 mg/dL (Less than 150)
[2016-09-04 20:31] LABS: #Basophils 0.1 thou/uL (0.0-0.2); #Eosinphils 0.3 thou/uL (0.0-0.7); #Lymphocytes 2.3 thou/uL (1.20-3.40); #Monocytes 0.5 thou/uL (0.11-0.59); #Neutrophils 6.5 thou/uL (1.40-6.50); %Basophils 0.7 % (0.0-1.0); %Eosinophils 3.3 % (0.0-10.0); %Lymphocytes 23.5 % (21.0-51.0); %Monocytes 4.7 % (0.0-10.0); %Neutrophils 67.9 % (42.0-75.0); Hemoglobin 8.9 g/dL (14.0-18.0); Mean Corpuscular HGB CONC 32.1 g/dL (32.0-36.0); Mean Corpuscular Hemoglobin 30.8 pg (27.0-31.0); Mean Corpuscular Volume 96.1 fl (80.0-94.0); Mean Platelet Volume 5.9 fL (7.4-10.4); Platelet Count 253 thou/uL (130-400); RBC Distribution Width 14.4 % (11.5-14.5); Red Blood Cell (RBC) Count 2.88 mill/uL (4.70-6.10); White Blood Cell (WBC) Count 9.6 thou/uL (4.8-10.8)
== END 2016-09-04 20:05 | disposition home or self-care (01) ==
LOC: MADLAB 20:04
PROVIDERS: ATTEND Family Medicine
DX: K91.2 Postsurgical malabsorption, not elsewhere classified (principal); D64.9 Anemia, unspecified; R62.7 Adult failure to thrive
CPT/HCPCS: 80053; 83735; 84100; 84478; 85025

== ENCOUNTER 2016-09-11 09:51 | Outpatient (CLI) | payer MEDICARE, MEDICAID ==
[2016-09-11 10:03] LABS: #Basophils 0.1 thou/uL (0.0-0.2); #Eosinphils 0.4 thou/uL (0.0-0.7); #Lymphocytes 1.8 thou/uL (1.20-3.40); #Monocytes 0.5 thou/uL (0.11-0.59); #Neutrophils 6.4 thou/uL (1.40-6.50); %Basophils 0.7 % (0.0-1.0); %Eosinophils 4.4 % (0.0-10.0); %Lymphocytes 19.8 % (21.0-51.0); %Monocytes 5.5 % (0.0-10.0); %Neutrophils 69.6 % (42.0-75.0); Mean Corpuscular HGB CONC 32.3 g/dL (32.0-36.0); Mean Corpuscular Hemoglobin 31.1 pg (27.0-31.0); Mean Corpuscular Volume 96.4 fl (80.0-94.0); Platelet Count 211 thou/uL (130-400); RBC Distribution Width 14.4 % (11.5-14.5); White Blood Cell (WBC) Count 9.2 thou/uL (4.8-10.8)
[2016-09-11 10:35] LABS: ALT (SGPT) 37 U/L (8-55); AST (SGOT) 26 U/L (5-34); Albumin 3.5 g/dL (3.5-5.0); Alkaline Phosphatase 449 U/L (40-150); Anion Gap 13 mmol/L (10-20); BUN (Urea Nitrogen) 16 mg/dL (8.4-25.7); Bilirubin, Total 1.2 mg/dL (0.2-1.2); Calc. Creatinine Clearance 0 mL/min (70-130); Calcium 9.6 mg/dL (7.8-10.44); Carbon Dioxide 22 mmol/L (22-29); Chloride 106 mmol/L (98-107); Estimated GFR-MDRD 63; Globulin 3.6 g/dL (2.4-3.5); Glucose 81 mg/dL (70-105); Magnesium 1.9 mg/dL (1.6-2.6); Phosphorus 2.9 mg/dL (2.3-4.7); Potassium 4.4 mmol/L (3.5-5.1); Protein, Total 7.1 g/dL (6.0-8.3); Sodium 137 mmol/L (136-145); Triglycerides 52 mg/dL (Less than 150)
== END 2016-09-11 09:52 | disposition home or self-care (01) ==
LOC: MADLABBHPM 09:51
PROVIDERS: ATTEND Family Medicine
DX: Z45.2 Encounter for adjustment and management of vascular access device (principal); N18.3 Chronic kidney disease, stage 3 (moderate); D63.1 Anemia in chronic kidney disease; K91.2 Postsurgical malabsorption, not elsewhere classified
CPT/HCPCS: 36415; 80053; 83735; 84100; 84478; 85025

== ENCOUNTER 2016-09-18 08:58 | Outpatient (CLI) | payer MEDICARE, MEDICAID ==
[2016-09-18 10:05] LABS: ALT (SGPT) 48 U/L (8-55); AST (SGOT) 32 U/L (5-34); Albumin 3.6 g/dL (3.5-5.0); Alkaline Phosphatase 439 U/L (40-150); Anion Gap 14 mmol/L (10-20); BUN (Urea Nitrogen) 16 mg/dL (8.4-25.7); Calc. Creatinine Clearance 0 mL/min (70-130); Calcium 9.5 mg/dL (7.8-10.44); Carbon Dioxide 20 mmol/L (22-29); Chloride 105 mmol/L (98-107); Estimated GFR-MDRD 59; Globulin 4.8 g/dL (2.4-3.5); Glucose 96 mg/dL (70-105); Magnesium 1.9 mg/dL (1.6-2.6); Phosphorus 3.7 mg/dL (2.3-4.7); Potassium 4.3 mmol/L (3.5-5.1); Protein, Total 8.4 g/dL (6.0-8.3); Sodium 135 mmol/L (136-145); Triglycerides 52 mg/dL (Less than 150)
[2016-09-18 10:08] LABS: Mean Corpuscular HGB CONC 31.4 g/dL (32.0-36.0); Mean Corpuscular Volume 95.6 fl (80.0-94.0); Mean Platelet Volume 7.4 fL (7.4-10.4); Platelet Count 261 thou/uL (130-400); RBC Distribution Width 13.7 % (11.5-14.5); Red Blood Cell (RBC) Count 3.01 mill/uL (4.70-6.10); White Blood Cell (WBC) Count 8.9 thou/uL (4.8-10.8)
== END 2016-09-18 08:59 | disposition home or self-care (01) ==
LOC: MADLABBHPM 08:58
PROVIDERS: ATTEND Family Medicine
DX: Z45.2 Encounter for adjustment and management of vascular access device (principal); K91.2 Postsurgical malabsorption, not elsewhere classified; D64.9 Anemia, unspecified; N18.3 Chronic kidney disease, stage 3 (moderate)
CPT/HCPCS: 36415; 80053; 83735; 84100; 84478; 85027

== ENCOUNTER 2016-09-26 07:46 | Outpatient (CLI) | payer MEDICARE, MEDICAID ==
[2016-09-26 08:54] LABS: ALT (SGPT) 38 U/L (8-55); AST (SGOT) 31 U/L (5-34); Albumin 3.9 g/dL (3.5-5.0); Alkaline Phosphatase 454 U/L (40-150); Anion Gap 16 mmol/L (10-20); BUN (Urea Nitrogen) 14 mg/dL (8.4-25.7); Bilirubin, Total 1.3 mg/dL (0.2-1.2); Calc. Creatinine Clearance 0 mL/min (70-130); Calcium 9.6 mg/dL (7.8-10.44); Carbon Dioxide 24 mmol/L (22-29); Chloride 106 mmol/L (98-107); Estimated GFR-MDRD 55; Globulin 3.7 g/dL (2.4-3.5); Glucose 97 mg/dL (70-105); Potassium 4.1 mmol/L (3.5-5.1); Protein, Total 7.6 g/dL (6.0-8.3); Sodium 142 mmol/L (136-145)
--- NOTE | 2016-09-26 10:30 | ULT ---
ULTRASOUND ABDOMEN LIMITED: (RIGHT UPPER QUADRANT) HISTORY: 60-year-old male with right upper quadrant abdominal pain and elevated liver function tests. FINDINGS: Gallbladder: Surgically absent. Common duct: 3 mm. Liver: Normal size and echogencity. Pancreas: Poorly visualized. No gross pathology identified. Right kidney: No hydronephrosis. IMPRESSION: 1. Status post cholecystectomy. 2. Otherwise negative. JN R POS: [facility]
== END 2016-09-26 07:47 | disposition home or self-care (01) ==
LOC: MADLAB 07:46
DX: K91.2 Postsurgical malabsorption, not elsewhere classified (principal); R94.5 Abnormal results of liver function studies; Z90.49 Acquired absence of other specified parts of digestive tract
CPT/HCPCS: 36415; 76705; 80053

== ENCOUNTER 2016-10-04 07:30 | Outpatient (CLI) | payer MEDICARE, MEDICAID ==
[2016-10-04 11:31] LABS: Hemoglobin 10.1 g/dL (14.0-18.0); Mean Corpuscular HGB CONC 30.7 g/dL (32.0-36.0); Mean Corpuscular Hemoglobin 28.8 pg (27.0-31.0); Mean Corpuscular Volume 93.8 fL (80.0-94.0)
[2016-10-04 11:32] LABS: Anisocytosis SLIGHT = 6-15 cells (100X) (0-5/hpf); Hypochromia SLIGHT = 6-15 cells (100X) (0-5/hpf); MDiff Complete? YES; Mean Platelet Volume 7.4 fL (7.4-10.4); Platelet Count 306 thou/uL (130-400); RBC Distribution Width 13.3 % (11.5-14.5)
[2016-10-04 11:33] LABS: Anion Gap 12 mmol/L (10-20); BUN (Urea Nitrogen) 18 mg/dL (8.4-25.7); Calc. Creatinine Clearance 0 mL/min (70-130); Carbon Dioxide 24 mmol/L (22-29); Chloride 107 mmol/L (98-107); Estimated GFR-MDRD 58; Glucose 96 mg/dL (70-105); PLT Morphology Comment Appears Adequate; Potassium 4.4 mmol/L (3.5-5.1); Sodium 139 mmol/L (136-145)
[2016-10-04 11:34] LABS: ALT (SGPT) 35 U/L (8-55); AST (SGOT) 28 U/L (5-34); Albumin 3.8 g/dL (3.5-5.0); Alkaline Phosphatase 449 U/L (40-150); Bilirubin, Total 1.2 mg/dL (0.2-1.2); Calcium 10.3 mg/dL (7.8-10.44); Globulin 4.3 g/dL (2.4-3.5); Magnesium 1.9 mg/dL (1.6-2.6); Phosphorus 3.2 mg/dL (2.3-4.7); Protein, Total 8.1 g/dL (6.0-8.3); Triglycerides 82 mg/dL (Less than 150)
[2016-10-04 14:54] LABS: #Basophils 0.1 thou/uL (0.0-0.2); #Eosinphils 0.3 thou/uL (0.0-0.7); #Lymphocytes 2.2 thou/uL (1.20-3.40); #Monocytes 0.3 thou/uL (0.11-0.59); #Neutrophils 5.1 thou/uL (1.40-6.50); %Basophils 0.8 % (0.0-1.0); %Eosinophils 3.8 % (0.0-10.0); %Lymphocytes 27.4 % (21.0-51.0); %Monocytes 3.9 % (0.0-10.0)
== END 2016-10-04 07:31 | disposition home or self-care (01) ==
LOC: MADLAB 07:30
PROVIDERS: ATTEND Internal Medicine Gastroenterology
DX: Z45.2 Encounter for adjustment and management of vascular access device (principal); I12.9 Hypertensive chronic kidney disease with stage 1 through stage 4 chronic kidney disease, or unspecified chronic kidney disease; N18.3 Chronic kidney disease, stage 3 (moderate); K91.2 Postsurgical malabsorption, not elsewhere classified; D64.9 Anemia, unspecified; R62.7 Adult failure to thrive
CPT/HCPCS: 36415; 80053; 83735; 84100; 84134; 84478; 85025

== ENCOUNTER 2016-10-16 11:07 | Outpatient (CLI) | payer MEDICARE, MEDICAID ==
[2016-10-16 12:45] LABS: ALT (SGPT) 51 U/L (8-55); AST (SGOT) 60 U/L (5-34); Albumin 3.3 g/dL (3.5-5.0); Alkaline Phosphatase 400 U/L (40-150); Anion Gap 19 mmol/L (10-20); BUN (Urea Nitrogen) 29 mg/dL (8.4-25.7); Bilirubin, Total 1.7 mg/dL (0.2-1.2); Calc. Creatinine Clearance 0 mL/min (70-130); Calcium 8.9 mg/dL (7.8-10.44); Carbon Dioxide 18 mmol/L (22-29); Chloride 105 mmol/L (98-107); Estimated GFR-MDRD 33; Globulin 3.5 g/dL (2.4-3.5); Glucose 94 mg/dL (70-105); Magnesium 1.6 mg/dL (1.6-2.6); Phosphorus 3.5 mg/dL (2.3-4.7); Protein, Total 6.8 g/dL (6.0-8.3); Sodium 138 mmol/L (136-145); Triglycerides 71 mg/dL (Less than 150)
[2016-10-16 13:34] LABS: Mean Corpuscular HGB CONC 31.3 g/dL (32.0-36.0); Mean Corpuscular Hemoglobin 28.5 pg (27.0-31.0); Mean Corpuscular Volume 90.9 fl (80.0-94.0); Mean Platelet Volume 7.1 fL (7.4-10.4); Platelet Count 201 thou/uL (130-400); Red Blood Cell (RBC) Count 3.16 mill/uL (4.70-6.10); White Blood Cell (WBC) Count 37.6 thou/uL (4.8-10.8)
== END 2016-10-16 11:08 | disposition home or self-care (01) ==
LOC: MADLABBHPM 11:07
PROVIDERS: ATTEND Internal Medicine Gastroenterology
DX: K91.2 Postsurgical malabsorption, not elsewhere classified (principal); N18.3 Chronic kidney disease, stage 3 (moderate)
CPT/HCPCS: 36415; 80053; 83735; 84100; 84134; 84478; 85027

== ENCOUNTER 2016-10-16 16:50 | Emergency (ER) | payer MEDICARE, MEDICAID ==
[~2016-10-16 16:50] MED LIST changes: +Sodium Chloride 0.9% 100 ML BAG ONE
[2016-10-16] MEDS ORDERED: Piperacillin/Tazobactam 3.375 GM VIAL ONE (17:25)
--- NOTE | 2016-10-16 18:29 | RAD ---
RADIOGRAPH OF CHEST: Indication: Leukocytosis. Comparison: 06-29-16 FINDINGS: There is diffuse alveolar and interstitial opacification of each lung. Enlargement of the cardiac si lhouette and pulmonary vasculature. There is elevation of the left hemidiaphragm. There is evidence of a left PICC line with termination at the level of the SVC. IMPRESSION: Findings which favor decompensated CHF/edema. Recommend clinical correlation in this regard. Follow up to resolution is recommended. POS: [facility]
== END 2016-10-16 18:00 | disposition short-term general hospital (02) ==
LOC: MADERS 16:50
DX: D72.829 Elevated white blood cell count, unspecified (principal); K63.4 Enteroptosis; I12.9 Hypertensive chronic kidney disease with stage 1 through stage 4 chronic kidney disease, or unspecified chronic kidney disease; N18.9 Chronic kidney disease, unspecified
CPT/HCPCS: 36415; 71010; 80053; 83605; 83735; 84100; 84134; 84478; 85027; 87040; 87077; 87149; 87186; 96365; J2543; J7050

== ENCOUNTER 2016-10-30 13:15 | Outpatient (CLI) | payer MEDICARE, MEDICAID ==
[2016-10-30 13:27] LABS: #Basophils 0.1 thou/uL (0.0-0.2); #Eosinphils 0.4 thou/uL (0.0-0.7); #Monocytes 0.5 thou/uL (0.11-0.59); #Neutrophils 5.7 thou/uL (1.40-6.50); %Basophils 1.4 % (0.0-1.0); %Eosinophils 4.9 % (0.0-10.0); %Lymphocytes 23.4 % (21.0-51.0); %Monocytes 5.3 % (0.0-10.0); %Neutrophils 65.1 % (42.0-75.0); Hemoglobin 8.5 g/dL (14.0-18.0); Mean Corpuscular HGB CONC 30.3 g/dL (32.0-36.0); Mean Corpuscular Hemoglobin 27.5 pg (27.0-31.0); Mean Corpuscular Volume 90.6 fl (80.0-94.0); Platelet Count 445 thou/uL (130-400); RBC Distribution Width 15.6 % (11.5-14.5); White Blood Cell (WBC) Count 8.7 thou/uL (4.8-10.8)
[2016-10-30 13:52] LABS: ALT (SGPT) 31 U/L (8-55); AST (SGOT) 30 U/L (5-34); Albumin 3.4 g/dL (3.5-5.0); Alkaline Phosphatase 418 U/L (40-150); Anion Gap 18 mmol/L (10-20); BUN (Urea Nitrogen) 15 mg/dL (8.4-25.7); Calc. Creatinine Clearance 0 mL/min (70-130); Calcium 9.1 mg/dL (7.8-10.44); Carbon Dioxide 20 mmol/L (22-29); Chloride 105 mmol/L (98-107); Estimated GFR-MDRD 63; Globulin 3.6 g/dL (2.4-3.5); Glucose 87 mg/dL (70-105); Magnesium 1.8 mg/dL (1.6-2.6); Phosphorus 3.7 mg/dL (2.3-4.7); Potassium 4.6 mmol/L (3.5-5.1); Sodium 138 mmol/L (136-145); Triglycerides 48 mg/dL (Less than 150)
== END 2016-10-30 13:16 | disposition home or self-care (01) ==
LOC: MADLABBHPM 13:15
PROVIDERS: ATTEND Family Medicine
DX: D72.829 Elevated white blood cell count, unspecified (principal); N18.3 Chronic kidney disease, stage 3 (moderate); I15.9 Secondary hypertension, unspecified
CPT/HCPCS: 36415; 80053; 83735; 84100; 84134; 84478; 85025

== ENCOUNTER 2016-11-06 12:31 | Outpatient (CLI) | payer MEDICARE, MEDICAID ==
[2016-11-06 12:49] LABS: #Basophils 0.1 thou/uL (0.0-0.2); #Eosinphils 0.2 thou/uL (0.0-0.7); #Lymphocytes 1.5 thou/uL (1.20-3.40); #Monocytes 0.3 thou/uL (0.11-0.59); #Neutrophils 3.8 thou/uL (1.40-6.50); %Basophils 1.1 % (0.0-1.0); %Eosinophils 3.1 % (0.0-10.0); %Lymphocytes 26.2 % (21.0-51.0); %Monocytes 5.6 % (0.0-10.0); Hemoglobin 8.4 g/dL (14.0-18.0); Mean Corpuscular HGB CONC 30.5 g/dL (32.0-36.0); Mean Corpuscular Hemoglobin 27.3 pg (27.0-31.0); Mean Corpuscular Volume 89.5 fl (80.0-94.0); Mean Platelet Volume 6.1 fL (7.4-10.4); Platelet Count 382 thou/uL (130-400); RBC Distribution Width 15.1 % (11.5-14.5); Red Blood Cell (RBC) Count 3.08 mill/uL (4.70-6.10); White Blood Cell (WBC) Count 5.9 thou/uL (4.8-10.8)
[2016-11-06 13:13] LABS: ALT (SGPT) 42 U/L (8-55); AST (SGOT) 30 U/L (5-34); Albumin 3.4 g/dL (3.5-5.0); Alkaline Phosphatase 491 U/L (40-150); Anion Gap 13 mmol/L (10-20); BUN (Urea Nitrogen) 16 mg/dL (8.4-25.7); Bilirubin, Total 0.7 mg/dL (0.2-1.2); Calc. Creatinine Clearance 0 mL/min (70-130); Calcium 9.4 mg/dL (7.8-10.44); Carbon Dioxide 25 mmol/L (22-29); Chloride 104 mmol/L (98-107); Estimated GFR-MDRD 52; Globulin 3.8 g/dL (2.4-3.5); Glucose 94 mg/dL (70-105); Magnesium 1.7 mg/dL (1.6-2.6); Phosphorus 3.8 mg/dL (2.3-4.7); Potassium 4.2 mmol/L (3.5-5.1); Protein, Total 7.2 g/dL (6.0-8.3); Sodium 138 mmol/L (136-145); Triglycerides 50 mg/dL (Less than 150)
== END 2016-11-06 12:32 | disposition home or self-care (01) ==
LOC: MADLABBHPM 12:31
PROVIDERS: ATTEND Family Medicine
DX: D72.829 Elevated white blood cell count, unspecified (principal); I15.9 Secondary hypertension, unspecified; N18.3 Chronic kidney disease, stage 3 (moderate)
CPT/HCPCS: 36415; 80053; 83735; 84100; 84478; 85025

== ENCOUNTER 2016-11-13 11:28 | Outpatient (CLI) | payer MEDICARE, MEDICAID ==
[2016-11-13 15:29] LABS: #Basophils 0.1 thou/uL (0.0-0.2); #Eosinphils 0.2 thou/uL (0.0-0.7); #Lymphocytes 1.8 thou/uL (1.20-3.40); #Monocytes 0.5 thou/uL (0.11-0.59); #Neutrophils 6.2 thou/uL (1.40-6.50); %Basophils 0.6 % (0.0-1.0); %Eosinophils 2.5 % (0.0-10.0); %Lymphocytes 20.6 % (21.0-51.0); %Monocytes 5.1 % (0.0-10.0); %Neutrophils 71.2 % (42.0-75.0); Mean Corpuscular HGB CONC 31.9 g/dL (32.0-36.0); Mean Corpuscular Volume 87.8 fl (80.0-94.0); Mean Platelet Volume 7.4 fL (7.4-10.4); Platelet Count 239 thou/uL (130-400); Red Blood Cell (RBC) Count 3.23 mill/uL (4.70-6.10); White Blood Cell (WBC) Count 8.7 thou/uL (4.8-10.8)
[2016-11-13 15:45] LABS: ALT (SGPT) 50 U/L (8-55); AST (SGOT) 32 U/L (5-34); Albumin 3.6 g/dL (3.5-5.0); Alkaline Phosphatase 485 U/L (40-150); Anion Gap 13 mmol/L (10-20); BUN (Urea Nitrogen) 15 mg/dL (8.4-25.7); Bilirubin, Total 0.6 mg/dL (0.2-1.2); Calc. Creatinine Clearance 0 mL/min (70-130); Calcium 9.3 mg/dL (7.8-10.44); Carbon Dioxide 24 mmol/L (22-29); Chloride 105 mmol/L (98-107); Estimated GFR-MDRD 63; Globulin 3.8 g/dL (2.4-3.5); Glucose 101 mg/dL (70-105); Magnesium 1.8 mg/dL (1.6-2.6); Phosphorus 3.2 mg/dL (2.3-4.7); Potassium 4.1 mmol/L (3.5-5.1); Protein, Total 7.4 g/dL (6.0-8.3); Sodium 138 mmol/L (136-145); Triglycerides 64 mg/dL (Less than 150)
== END 2016-11-13 11:29 | disposition home or self-care (01) ==
LOC: MADLABBHPM 11:28
PROVIDERS: ATTEND Family Medicine
DX: Z45.2 Encounter for adjustment and management of vascular access device (principal); I12.9 Hypertensive chronic kidney disease with stage 1 through stage 4 chronic kidney disease, or unspecified chronic kidney disease; N18.3 Chronic kidney disease, stage 3 (moderate); E87.6 Hypokalemia; D63.1 Anemia in chronic kidney disease; Z79.2 Long term (current) use of antibiotics
CPT/HCPCS: 80053; 83735; 84100; 84478; 85025

== ENCOUNTER 2016-11-13 20:26 | Emergency (ER) | payer MEDICARE, MEDICAID ==
[~2016-11-13 20:26] MED LIST changes: +Iopamidol 370 76% 100 ML VIAL ONE; -Sodium Chloride 0.9% 100 ML BAG ONE
[2016-11-13] MEDS ORDERED: Ondansetron HCl/PF 4 MG/2 ML Vial ONE (21:44)
[2016-11-13] MEDS ORDERED: Ketorolac Tromethamine 30 MG/ML VIAL ONE (21:44)
--- NOTE | 2016-11-13 22:01 | RAD ---
SINGLE VIEW OF THE CHEST: Comparison: 10-18-16 History: Epigastric abdominal pain. FINDINGS: Single view of the chest shows a normal sized cardiomediastinal silhouette. There is no evidence of consolidation, mass, or pleural effusion. The bones are unremarkable. IMPRESSION: No evidence of acute cardiopulmonary disease. POS: [facility]
[2016-11-13 22:31] LABS: #Basophils 0.1 thou/uL (0.0-0.2); #Eosinphils 0.4 thou/uL (0.0-0.7); #Lymphocytes 2.2 thou/uL (1.20-3.40); #Monocytes 0.7 thou/uL (0.11-0.59); #Neutrophils 6.9 thou/uL (1.40-6.50); %Basophils 0.7 % (0.0-1.0); %Eosinophils 4.1 % (0.0-10.0); %Lymphocytes 21.4 % (21.0-51.0); %Monocytes 6.6 % (0.0-10.0); %Neutrophils 67.2 % (42.0-75.0); Hemoglobin 8.7 g/dL (14.0-18.0); Mean Corpuscular HGB CONC 31.8 g/dL (32.0-36.0); Mean Corpuscular Hemoglobin 27.9 pg (27.0-31.0); Mean Corpuscular Volume 87.7 fl (80.0-94.0); Mean Platelet Volume 8.1 fL (7.4-10.4); Platelet Count 212 thou/uL (130-400); RBC Distribution Width 14.7 % (11.5-14.5); Red Blood Cell (RBC) Count 3.11 mill/uL (4.70-6.10); White Blood Cell (WBC) Count 10.2 thou/uL (4.8-10.8)
[2016-11-13 22:49] LABS: ALT (SGPT) 44 U/L (8-55); AST (SGOT) 27 U/L (5-34); Albumin 3.4 g/dL (3.5-5.0); Alkaline Phosphatase 430 U/L (40-150); Anion Gap 15 mmol/L (10-20); BUN (Urea Nitrogen) 19 mg/dL (8.4-25.7); Bilirubin, Total 0.9 mg/dL (0.2-1.2); Calc. Creatinine Clearance 0 mL/min (70-130); Calcium 8.7 mg/dL (7.8-10.44); Carbon Dioxide 21 mmol/L (22-29); Chloride 106 mmol/L (98-107); Estimated GFR-MDRD 58; Globulin 3.9 g/dL (2.4-3.5); Glucose 74 mg/dL (70-105); Lipase 33 U/L (8-78); Potassium 3.9 mmol/L (3.5-5.1); Protein, Total 7.3 g/dL (6.0-8.3); Sodium 138 mmol/L (136-145)
[2016-11-13 23:24] LABS: Bilirubin Negative (Negative); Blood, Urine Negative (Negative); Clarity Clear (Clear); Glucose, Urine (Dipstick) Negative (Negative); Leukocyte Negative (Negative); Nitrite Negative (Negative); Protein, Urine (Dipstick) 30 mg/dL (Neg-Trace); RBC/HPF 0-3 HPF (0-3); Urobilinogen 0.2 mg/dL (0.2-1.0)
[2016-11-13 23:25] LABS: Bacteria/HPF None Seen HPF (None Seen); Squamous Epithelial 0-3 HPF (0-3)
--- NOTE | 2016-11-14 08:22 | CT ---
PRELIMINARY REPORT/[facility]/EMERGENCY AFTER HOURS PROCEDURE: EXAM: CT Abdomen and Pelvis With Intravenous Contrast EXAM DATE/TIME: Exam ordered 11/13/2016 11:49 PM CLINICAL HISTORY: 61 years old, male; Pain; Abdominal pain; Generalized; Patient HX: Pt complaining of abd. Pain gener alized. Lt piccs line and colostomy TECHNIQUE: Axial computed tomography images of the abdomen and pelvis with intravenous contrast. All CT scans a t this facility use one or more dose reduction techniques, viz.: automated exposure control; ma/kV a djustment per patient size (including targeted exams where dose is matched to indication; i.e. head) ; or iterative reconstruction technique. CONTRAST: 75 mL of isovue administered intravenously. COMPARISON: No relevant prior studies available. FINDINGS: Lower thorax: No acute findings. ABDOMEN: Liver: Unremarkable. No mass. Gallbladder and bile ducts: Prior cholecystectomy. There is mild intra-and extrahepatic biliary duct al dilatation. Findings are likely a result of age and postcholecystectomy state given that there is no visible obstructing choledocholithiasis or pancreatic head mass and the distal CBD tapers normal ly as it approaches the duodenum. Pancreas: Unremarkable. No mass. No ductal dilation. Spleen: Unremarkable. No splenomegaly. Adrenals: Unremarkable. No mass. Kidneys and ureters: Unremarkable. No solid mass. No hydronephrosis. Stomach and bowel: Prior colectomy. Right lower quadrant ileostomy. The rectal/sigmoid pouch is mode rately distended with fluid and gas. No intestinal obstruction. Appendix: See above. PELVIS: Bladder: Mild circumferential urinary bladder wall thickening without pericystic inflammation is equ ivocal for cystitis. Reproductive: Unremarkable as visualized. ABDOMEN and PELVIS: Intraperitoneal space: Unremarkable. No free air. No significant fluid collection. Bones/joints: No acute fracture. No dislocation. Soft tissues: No bowel wall thickening. Gynecomastia Vasculature: Unremarkable. No abdominal aortic aneurysm. Lymph nodes: Unremarkable. No enlarged lymph nodes. IMPRESSION: Mild circumferential urinary bladder wall thickening without pericystic inflammation is equivocal fo r cystitis. Thank you for allowing us to participate in the care of your patient. Dictated and Authenticated by: Dheeraj Stern MD 11/14/2016 12:29 AM Central Time ([place] \T\ Sergei) FINAL REPORT EMERGENCY AFTER HOURS CT ABDOMEN AND PELVIS: Date: 11/13/16 FINDINGS: I agree with the preliminary report provided. There is mild bibasilar atelectasis. There is postsurg ical change of near total colectomy with establishment of enterocolonic anastomosis within the lower aspect of the abdomen. There is mild dilatation of the rectum and distal aspect of the sigmoid colo n, which is stable to a comparison dated 10/17/16. There is right lower quadrant parastomal hernia w hich is similar without evidence of obstruction. No free fluid or free air is demonstrated. No acute osseous abnormality is evident. IMPRESSION: I agree with the preliminary report provided. There is some mild urinary bladder wall thickening whi ch may be related to decompression. Cystitis cannot be entirely excluded. POS: [facility]
== END 2016-11-14 01:23 | disposition home or self-care (01) ==
LOC: MADERS 20:26
DX: N39.0 Urinary tract infection, site not specified (principal); I12.9 Hypertensive chronic kidney disease with stage 1 through stage 4 chronic kidney disease, or unspecified chronic kidney disease; N18.9 Chronic kidney disease, unspecified; F20.9 Schizophrenia, unspecified; Z79.891 Long term (current) use of opiate analgesic; Z79.899 Other long term (current) drug therapy
CPT/HCPCS: 36415; 71010; 74177; 80053; 81001; 82150; 83605; 83690; 83735; 84100; 84478; 85025; 87086; 96361; 96374; 96375; J1642; J1885; J2270; J2405; J7050

== ENCOUNTER 2016-11-20 13:27 | Outpatient (CLI) | payer MEDICARE, MEDICAID ==
[2016-11-20 13:55] LABS: ALT (SGPT) 56 U/L (8-55); AST (SGOT) 59 U/L (5-34); Albumin 3.8 g/dL (3.5-5.0); Alkaline Phosphatase 489 U/L (40-150); Anion Gap 15 mmol/L (10-20); BUN (Urea Nitrogen) 19 mg/dL (8.4-25.7); Bilirubin, Total 0.6 mg/dL (0.2-1.2); Calc. Creatinine Clearance 0 mL/min (70-130); Calcium 9.5 mg/dL (7.8-10.44); Carbon Dioxide 22 mmol/L (22-29); Chloride 105 mmol/L (98-107); Estimated GFR-MDRD 44; Glucose 114 mg/dL (70-105); Magnesium 1.7 mg/dL (1.6-2.6); Phosphorus 3.5 mg/dL (2.3-4.7); Potassium 4.1 mmol/L (3.5-5.1); Protein, Total 7.8 g/dL (6.0-8.3); Sodium 138 mmol/L (136-145); Triglycerides 63 mg/dL (Less than 150)
[2016-11-20 14:09] LABS: #Basophils 0.1 thou/uL (0.0-0.2); #Eosinphils 0.2 thou/uL (0.0-0.7); #Lymphocytes 2.8 thou/uL (1.20-3.40); #Monocytes 0.5 thou/uL (0.11-0.59); #Neutrophils 6.6 thou/uL (1.40-6.50); %Basophils 0.9 % (0.0-1.0); %Eosinophils 1.9 % (0.0-10.0); %Lymphocytes 27.2 % (21.0-51.0); %Monocytes 5.1 % (0.0-10.0); %Neutrophils 64.9 % (42.0-75.0); Hemoglobin 9.9 g/dL (14.0-18.0); Mean Corpuscular HGB CONC 30.2 g/dL (32.0-36.0); Mean Corpuscular Hemoglobin 26.4 pg (27.0-31.0); Mean Corpuscular Volume 87.6 fl (80.0-94.0); Mean Platelet Volume 7.1 fL (7.4-10.4); Platelet Count 284 thou/uL (130-400); RBC Distribution Width 14.9 % (11.5-14.5); Red Blood Cell (RBC) Count 3.76 mill/uL (4.70-6.10); White Blood Cell (WBC) Count 10.2 thou/uL (4.8-10.8)
== END 2016-11-20 13:28 | disposition home or self-care (01) ==
LOC: MADLAB 13:27
PROVIDERS: ATTEND Family Medicine
DX: I12.9 Hypertensive chronic kidney disease with stage 1 through stage 4 chronic kidney disease, or unspecified chronic kidney disease (principal); N18.3 Chronic kidney disease, stage 3 (moderate); D63.1 Anemia in chronic kidney disease; E87.6 Hypokalemia; E86.0 Dehydration; K94.19 Other complications of enterostomy; Z79.2 Long term (current) use of antibiotics
CPT/HCPCS: 36415; 80053; 83735; 84100; 84478; 85025

== ENCOUNTER 2016-11-27 18:08 | Outpatient (CLI) | payer MEDICARE, MEDICAID ==
[2016-11-27 18:34] LABS: ALT (SGPT) 70 U/L (8-55); AST (SGOT) 68 U/L (5-34); Albumin 4.1 g/dL (3.5-5.0); Alkaline Phosphatase 478 U/L (40-150); Anion Gap 14 mmol/L (10-20); BUN (Urea Nitrogen) 23 mg/dL (8.4-25.7); Bilirubin, Total 1.1 mg/dL (0.2-1.2); Calc. Creatinine Clearance 0 mL/min (70-130); Calcium 9.6 mg/dL (7.8-10.44); Carbon Dioxide 21 mmol/L (22-29); Chloride 106 mmol/L (98-107); Estimated GFR-MDRD 59; Globulin 3.9 g/dL (2.4-3.5); Glucose 106 mg/dL (70-105); Magnesium 2.1 mg/dL (1.6-2.6); Phosphorus 3.3 mg/dL (2.3-4.7); Potassium 4.4 mmol/L (3.5-5.1); Sodium 137 mmol/L (136-145); Triglycerides 66 mg/dL (Less than 150)
[2016-11-27 18:35] LABS: #Basophils 0.1 thou/uL (0.0-0.2); #Eosinphils 0.3 thou/uL (0.0-0.7); #Lymphocytes 2.6 thou/uL (1.20-3.40); #Monocytes 0.5 thou/uL (0.11-0.59); #Neutrophils 5.7 thou/uL (1.40-6.50); %Eosinophils 3.3 % (0.0-10.0); %Lymphocytes 28.3 % (21.0-51.0); %Monocytes 5.9 % (0.0-10.0); %Neutrophils 61.6 % (42.0-75.0); Hemoglobin 10.3 g/dL (14.0-18.0); Mean Corpuscular HGB CONC 30.2 g/dL (32.0-36.0); Mean Corpuscular Hemoglobin 26.4 pg (27.0-31.0); Mean Corpuscular Volume 87.5 fl (80.0-94.0); Mean Platelet Volume 7.2 fL (7.4-10.4); Platelet Count 271 thou/uL (130-400); RBC Distribution Width 15.3 % (11.5-14.5); White Blood Cell (WBC) Count 9.2 thou/uL (4.8-10.8)
== END 2016-11-27 18:09 | disposition home or self-care (01) ==
LOC: MADLABSP 18:08
PROVIDERS: ATTEND Family Medicine
DX: I12.9 Hypertensive chronic kidney disease with stage 1 through stage 4 chronic kidney disease, or unspecified chronic kidney disease (principal); N18.3 Chronic kidney disease, stage 3 (moderate); D63.1 Anemia in chronic kidney disease; K94.19 Other complications of enterostomy; E87.6 Hypokalemia; Z79.2 Long term (current) use of antibiotics
CPT/HCPCS: 80053; 83735; 84100; 84134; 84478; 85025

== ENCOUNTER 2016-12-05 08:04 | Outpatient (CLI) | payer MEDICARE, MEDICAID ==
[2016-12-05 08:20] LABS: #Basophils 0.1 thou/uL (0.0-0.2); #Eosinphils 0.2 thou/uL (0.0-0.7); #Lymphocytes 1.9 thou/uL (1.20-3.40); #Monocytes 0.5 thou/uL (0.11-0.59); #Neutrophils 5.4 thou/uL (1.40-6.50); %Basophils 0.8 % (0.0-1.0); %Eosinophils 3.1 % (0.0-10.0); %Lymphocytes 23.9 % (21.0-51.0); %Monocytes 5.5 % (0.0-10.0); %Neutrophils 66.7 % (42.0-75.0); Hemoglobin 10.2 g/dL (14.0-18.0); Mean Corpuscular HGB CONC 30.5 g/dL (32.0-36.0); Mean Corpuscular Hemoglobin 26.3 pg (27.0-31.0); Mean Corpuscular Volume 86.3 fl (80.0-94.0); Mean Platelet Volume 6.8 fL (7.4-10.4); Platelet Count 226 thou/uL (130-400); RBC Distribution Width 15.8 % (11.5-14.5); Red Blood Cell (RBC) Count 3.89 mill/uL (4.70-6.10); White Blood Cell (WBC) Count 8.1 thou/uL (4.8-10.8)
[2016-12-05 09:08] LABS: ALT (SGPT) 96 U/L (8-55); AST (SGOT) 121 U/L (5-34); Albumin 3.7 g/dL (3.5-5.0); Alkaline Phosphatase 516 U/L (40-150); Anion Gap 12 mmol/L (10-20); BUN (Urea Nitrogen) 18 mg/dL (8.4-25.7); Bilirubin, Total 1.1 mg/dL (0.2-1.2); Calc. Creatinine Clearance 0 mL/min (70-130); Calcium 9.5 mg/dL (7.8-10.44); Carbon Dioxide 24 mmol/L (22-29); Cardiac Risk 1.9 (Less than 4.5); Chloride 106 mmol/L (98-107); Cholesterol 100 mg/dl (< 200 Desired); Estimated GFR-MDRD 64; Globulin 3.9 g/dL (2.4-3.5); Glucose 100 mg/dL (70-105); HDL Cholesterol 52 mg/dL (>60 Neg Risk); LDL Cholesterol, Calculated 37 mg/dL; Magnesium 1.6 mg/dL (1.6-2.6); Phosphorus 3.6 mg/dL (2.3-4.7); Potassium 4.4 mmol/L (3.5-5.1); Protein, Total 7.6 g/dL (6.0-8.3); Sodium 138 mmol/L (136-145); Triglycerides 56 mg/dL (Less than 150)
== END 2016-12-05 08:05 | disposition home or self-care (01) ==
LOC: MADLABBHPM 08:04
PROVIDERS: ATTEND Internal Medicine Gastroenterology
DX: I12.9 Hypertensive chronic kidney disease with stage 1 through stage 4 chronic kidney disease, or unspecified chronic kidney disease (principal); N18.3 Chronic kidney disease, stage 3 (moderate); D63.1 Anemia in chronic kidney disease; E87.6 Hypokalemia; E78.5 Hyperlipidemia, unspecified; Z79.2 Long term (current) use of antibiotics
CPT/HCPCS: 36415; 80053; 80061; 83735; 84100; 85025

== ENCOUNTER 2016-12-11 09:53 | Outpatient (CLI) | payer MEDICARE, MEDICAID ==
[2016-12-11 12:14] LABS: ALT (SGPT) 71 U/L (8-55); AST (SGOT) 63 U/L (5-34); Albumin 3.8 g/dL (3.5-5.0); Alkaline Phosphatase 586 U/L (40-150); Anion Gap 14 mmol/L (10-20); BUN (Urea Nitrogen) 16 mg/dL (8.4-25.7); Bilirubin, Total 0.9 mg/dL (0.2-1.2); Calc. Creatinine Clearance 0 mL/min (70-130); Calcium 9.5 mg/dL (7.8-10.44); Carbon Dioxide 24 mmol/L (22-29); Chloride 104 mmol/L (98-107); Estimated GFR-MDRD 58; Globulin 3.8 g/dL (2.4-3.5); Glucose 102 mg/dL (70-105); Magnesium 1.8 mg/dL (1.6-2.6); Phosphorus 3.4 mg/dL (2.3-4.7); Potassium 4.1 mmol/L (3.5-5.1); Protein, Total 7.6 g/dL (6.0-8.3); Sodium 138 mmol/L (136-145); Triglycerides 64 mg/dL (Less than 150)
[2016-12-11 14:16] LABS: %Lymphocytes 33.2 % (21.0-51.0); Hemoglobin 10.5 g/dL (14.0-18.0); Mean Corpuscular HGB CONC 30.6 g/dL (32.0-36.0); Mean Corpuscular Hemoglobin 26.3 pg (27.0-31.0); Mean Corpuscular Volume 85.9 fL (80.0-94.0); Mean Platelet Volume 7.5 fL (7.4-10.4); Platelet Count 230 thou/uL (130-400); RBC Distribution Width 16.2 % (11.5-14.5); Red Blood Cell (RBC) Count 3.99 mill/uL (4.70-6.10); White Blood Cell (WBC) Count 10.6 thou/uL (4.8-10.8)
[2016-12-11 14:17] LABS: #Basophils 0.1 thou/uL (0.0-0.2); #Eosinphils 0.3 thou/uL (0.0-0.7); #Lymphocytes 3.5 thou/uL (1.20-3.40); #Monocytes 0.8 thou/uL (0.11-0.59); #Neutrophils 5.9 thou/uL (1.40-6.50); %Basophils 1.2 % (0.0-1.0); %Eosinophils 2.8 % (0.0-10.0); %Monocytes 7.9 % (0.0-10.0)
== END 2016-12-11 09:54 | disposition home or self-care (01) ==
LOC: MADLABBHPM 09:53
PROVIDERS: ATTEND Internal Medicine Gastroenterology
DX: I12.9 Hypertensive chronic kidney disease with stage 1 through stage 4 chronic kidney disease, or unspecified chronic kidney disease (principal); N18.3 Chronic kidney disease, stage 3 (moderate); D63.1 Anemia in chronic kidney disease; E87.6 Hypokalemia; Z79.2 Long term (current) use of antibiotics
CPT/HCPCS: 36415; 80053; 83735; 84100; 84478; 85025

== ENCOUNTER 2016-12-18 09:32 | Emergency (ER) | payer MEDICARE, MEDICAID ==
[~2016-12-18 09:32] MED LIST changes: -Iopamidol 370 76% 100 ML VIAL ONE
[2016-12-18] MEDS ORDERED: Ibuprofen 800 MG TAB ONE (09:58)
[2016-12-18] MEDS ORDERED: Acetaminophen 500 MG TAB ONE (09:58)
[2016-12-18 10:31] LABS: PTT 29.6 SEC (22.9-36.1); Prothrombin Time 13.6 SEC (12.0-14.7)
[2016-12-18 10:37] LABS: Hemoglobin 10.5 g/dL (14.0-18.0); Mean Corpuscular HGB CONC 33.6 g/dL (32.0-36.0); Mean Corpuscular Hemoglobin 28.2 pg (27.0-31.0); Mean Corpuscular Volume 83.9 fl (80.0-94.0); Mean Platelet Volume 7.5 fL (7.4-10.4); Platelet Count 231 thou/uL (130-400); RBC Distribution Width 16.2 % (11.5-14.5); Red Blood Cell (RBC) Count 3.74 mill/uL (4.70-6.10); White Blood Cell (WBC) Count 21.7 thou/uL (4.8-10.8)
[2016-12-18 10:38] LABS: Acetaminophen Less than 6.0 mcg/mL (10.0-30.0); Alcohol Less than 10 mg/dL (Less than 10); Anisocytosis SLIGHT = 6-15 cells (100X) (0-5/hpf); Band 6 % (5-11); Elliptocytes SLIGHT = 2-5 cells (100X) (0-1/hpf); Eosinophils 3 % (0-10); Lymphocytes 3 % (21-51); MDiff Complete? YES; Monocytes 1 % (0-10); Neutrophil 87 % (42-75); Poikilocytosis SLIGHT = 6-15 cells (100X) (0-5/hpf); Rouleaux Formation SLIGHT = 1-5 cells (100X) (None Seen); Salicylate Less than 8.0 mg/dL (15.0-30.0); Tear Drops SLIGHT = 2-5 cells (100X) (0-1/hpf)
[2016-12-18 10:47] LABS: ALT (SGPT) 91 U/L (8-55); AST (SGOT) 54 U/L (5-34); Albumin 3.6 g/dL (3.5-5.0); Alkaline Phosphatase 570 U/L (40-150); Anion Gap 15 mmol/L (10-20); BUN (Urea Nitrogen) 26 mg/dL (8.4-25.7); Bilirubin, Total 2.4 mg/dL (0.2-1.2); CK (CPK) 200 U/L (30-200); CKMB 0.2 ng/mL (0-6.6); Calc. Creatinine Clearance 0 mL/min (70-130); Calcium 9.4 mg/dL (7.8-10.44); Carbon Dioxide 23 mmol/L (22-29); Chloride 103 mmol/L (98-107); Estimated GFR-MDRD 44; Globulin 4.3 g/dL (2.4-3.5); Glucose 114 mg/dL (70-105); Magnesium 1.8 mg/dL (1.6-2.6); Protein, Total 7.9 g/dL (6.0-8.3); Sodium 137 mmol/L (136-145); Troponin I Less than 0.010 ng/mL (< 0.028)
--- NOTE | 2016-12-18 10:59 | RAD ---
PORTABLE CHEST 1 VIEW: Date: 12/18/16 Time: 0957 hours HISTORY: Fever. FINDINGS: Comparison made with exam of 11/13/16. There is continued elevation of the left hemidiaphragm. The heart size is normal. Left-sided central venous catheter remains in place. No focal areas of consolidation, pneumothorax, moses pulmonary ed evert, or pleural effusions are seen. IMPRESSION: No acute process. POS: [facility]
[2016-12-18 11:32] LABS: Bacteria/HPF Rare-Few HPF (None Seen); Bilirubin Negative (Negative); Blood, Urine Trace (Negative); Clarity Clear (Clear); Glucose, Urine (Dipstick) Negative (Negative); Leukocyte Negative (Negative); Nitrite Negative (Negative); Protein, Urine (Dipstick) 100 mg/dL (Neg-Trace); RBC/HPF 0-3 HPF (0-3); Specific Gravity, Urine 1.015 (1.005-1.030); Squamous Epithelial 0-3 HPF (0-3); Urobilinogen 0.2 mg/dL (0.2-1.0); WBC/HPF 0-3 HPF (0-3)
[2016-12-18 11:33] LABS: Other Microscopic Description C&S SET UP
[2016-12-18 11:40] LABS: Amphetamine Not Detected (NotDetected); Barbiturates Screen Not Detected (NotDetected); Benzodiazepine Screen Not Detected (NotDetected); Cocaine Metabolite Screen Not Detected (NotDetected); Medtox Control Line Valid? VALID (VALID); Methadone Not Detected (NotDetected); Methamphetamine Not Detected (NotDetected); Opiate Screen Detected (NotDetected); Oxycodone Screen Not Detected (NotDetected); Phencyclidine (PCP) Not Detected (NotDetected); THC/Cannabinoid Screen Not Detected (NotDetected); Tricyclic Screen Not Detected (NotDetected)
--- NOTE | 2016-12-18 12:52 | CT ---
CT OF THE ABDOMEN AND PELVIS WITHOUT IV CONTRAST: INDICATION: Fever up to 104.8 with an elevated white count and right lower quadrant abdominal pain. COMPARISON: Prior CT of the abdomen and pelvis with IV contrast dated 11/13/16 and 10/17/16. FINDINGS: There is increased airspace opacity within both lower lobes, left greater than right. Unopacified liver is unchanged. The unopacified pancreas, spleen, and adrenal glands are similar. There are surgical clips within the left upper quadrant which are similar. There is a suggestion of a wall thickening involving multiple loops of small bowel within the left upper quadrant of the abd omen. Right lower quadrant ileostomy with associated parastomal hernia is similar. Moderate distention of the distal colon and rectum is similar. Wall thickening involving the bladder is similar. No free fluid or definite free air is noted. No drainable fluid collection is evident. No definite acute osseous abnormality is evident. IMPRESSION: 1. Bibasilar atelectasis. 2. Wall thickening involving multiple loops of small bowel within the left upper quadrant of the ab domen may reflect enteritis. Recommend correlation. 3. Right lower quadrant ileostomy with parastomal hernia is similar-appearing. 4. Moderate distension of the rectum and residual sigmoid colon is stable. 5. Wall thickening involving the bladder is similar and may reflect a component of chronic bladder outlet obstruction or cystitis. Recommend correlation. POS: [facility]
[2016-12-18] MEDS ORDERED: metroNIDAZOLE 500 MG/100 ML BAG ONE (13:39)
== END 2016-12-18 13:48 | disposition short-term general hospital (02) ==
LOC: MADERS 09:32
DX: K52.9 Noninfective gastroenteritis and colitis, unspecified (principal); I12.9 Hypertensive chronic kidney disease with stage 1 through stage 4 chronic kidney disease, or unspecified chronic kidney disease; N18.9 Chronic kidney disease, unspecified; Z43.3 Encounter for attention to colostomy; F79 Unspecified intellectual disabilities
CPT/HCPCS: 36415; 71010; 74176; 80053; 80306; 80307; 81001; 82553; 83735; 83880; 84484; 85025; 85610; 85730; 87040; 87077; 87086; 87149; 87186; 93005; 94760; 96360; 96361; J7050

== ENCOUNTER 2017-01-01 18:46 | Outpatient (CLI) | payer MEDICARE, MEDICAID ==
[2017-01-01 19:54] LABS: Hemoglobin 9.3 g/dL (14.0-18.0); Lymphocytes 14 % (21-51); MDiff Complete? YES; Mean Corpuscular HGB CONC 31.3 g/dL (32.0-36.0); Mean Corpuscular Hemoglobin 27.2 pg (27.0-31.0); Mean Corpuscular Volume 86.7 fl (80.0-94.0); Mean Platelet Volume 6.2 fL (7.4-10.4); Monocytes 5 % (0-10); Neutrophil 81 % (42-75); PLT Morphology Comment Appears Adequate; Platelet Count 297 thou/uL (130-400); RBC Distribution Width 17.7 % (11.5-14.5); Red Blood Cell (RBC) Count 3.44 mill/uL (4.70-6.10); White Blood Cell (WBC) Count 8.9 thou/uL (4.8-10.8)
[2017-01-01 19:55] LABS: ALT (SGPT) 48 U/L (8-55); AST (SGOT) 32 U/L (5-34); Albumin 3.7 g/dL (3.5-5.0); Alkaline Phosphatase 637 U/L (40-150); Anion Gap 16 mmol/L (10-20); BUN (Urea Nitrogen) 16 mg/dL (8.4-25.7); Bilirubin, Total 0.6 mg/dL (0.2-1.2); Calc. Creatinine Clearance 0 mL/min (70-130); Calcium 9.5 mg/dL (7.8-10.44); Carbon Dioxide 23 mmol/L (22-29); Chloride 102 mmol/L (98-107); Estimated GFR-MDRD 55; Globulin 3.2 g/dL (2.4-3.5); Glucose 153 mg/dL (70-105); Magnesium 1.7 mg/dL (1.6-2.6); Phosphorus 3.9 mg/dL (2.3-4.7); Potassium 4.1 mmol/L (3.5-5.1); Protein, Total 6.9 g/dL (6.0-8.3); Sodium 137 mmol/L (136-145); Triglycerides 51 mg/dL (Less than 150)
== END 2017-01-01 18:47 | disposition home or self-care (01) ==
LOC: MADLABSP 18:46
PROVIDERS: ATTEND Family Medicine
DX: I12.9 Hypertensive chronic kidney disease with stage 1 through stage 4 chronic kidney disease, or unspecified chronic kidney disease (principal); D63.1 Anemia in chronic kidney disease; N18.3 Chronic kidney disease, stage 3 (moderate); K94.19 Other complications of enterostomy; E86.0 Dehydration; E87.6 Hypokalemia; Z79.2 Long term (current) use of antibiotics
CPT/HCPCS: 80053; 83735; 84100; 84134; 84478; 85025

== ENCOUNTER 2017-01-08 13:11 | Outpatient (CLI) | payer MEDICARE, MEDICAID ==
[2017-01-08 13:23] LABS: #Basophils 0.1 thou/uL (0.0-0.2); #Eosinphils 0.2 thou/uL (0.0-0.7); #Lymphocytes 2.8 thou/uL (1.20-3.40); #Monocytes 0.4 thou/uL (0.11-0.59); #Neutrophils 3.9 thou/uL (1.40-6.50); %Basophils 1.1 % (0.0-1.0); %Lymphocytes 38.6 % (21.0-51.0); %Monocytes 4.7 % (0.0-10.0); %Neutrophils 52.6 % (42.0-75.0); Hemoglobin 9.9 g/dL (14.0-18.0); Mean Corpuscular HGB CONC 30.6 g/dL (32.0-36.0); Mean Corpuscular Hemoglobin 26.5 pg (27.0-31.0); Mean Corpuscular Volume 86.5 fl (80.0-94.0); Mean Platelet Volume 7.1 fL (7.4-10.4); Platelet Count 284 thou/uL (130-400); RBC Distribution Width 17.6 % (11.5-14.5); Red Blood Cell (RBC) Count 3.76 mill/uL (4.70-6.10); White Blood Cell (WBC) Count 7.4 thou/uL (4.8-10.8)
[2017-01-08 14:14] LABS: ALT (SGPT) 67 U/L (8-55); AST (SGOT) 47 U/L (5-34); Albumin 3.8 g/dL (3.5-5.0); Alkaline Phosphatase 661 U/L (40-150); Anion Gap 15 mmol/L (10-20); BUN (Urea Nitrogen) 14 mg/dL (8.4-25.7); Bilirubin, Total 0.9 mg/dL (0.2-1.2); Calc. Creatinine Clearance 0 mL/min (70-130); Calcium 9.6 mg/dL (7.8-10.44); Carbon Dioxide 27 mmol/L (22-29); Chloride 102 mmol/L (98-107); Estimated GFR-MDRD 60; Globulin 3.3 g/dL (2.4-3.5); Glucose 84 mg/dL (70-105); Magnesium 1.8 mg/dL (1.6-2.6); Phosphorus 3.9 mg/dL (2.3-4.7); Potassium 4.1 mmol/L (3.5-5.1); Protein, Total 7.1 g/dL (6.0-8.3); Sodium 140 mmol/L (136-145); Triglycerides 64 mg/dL (Less than 150)
== END 2017-01-08 13:12 | disposition home or self-care (01) ==
LOC: MADLABBHPM 13:11
PROVIDERS: ATTEND Internal Medicine Gastroenterology
DX: E87.6 Hypokalemia (principal); I12.9 Hypertensive chronic kidney disease with stage 1 through stage 4 chronic kidney disease, or unspecified chronic kidney disease; N18.3 Chronic kidney disease, stage 3 (moderate); D63.1 Anemia in chronic kidney disease; Z79.2 Long term (current) use of antibiotics
CPT/HCPCS: 36415; 80053; 83735; 84100; 84478; 85025

== ENCOUNTER 2017-02-03 11:32 | Emergency (ER) | payer MEDICARE, MEDICAID ==
[2017-02-03] MEDS ORDERED: Acetaminophen 500 MG TAB ONE (12:08)
[2017-02-03] MEDS ORDERED: Levofloxacin 500 mg/D5W 100 ml Premix Bag ONE (12:33)
[2017-02-03 12:40] LABS: Bilirubin Small (Negative); Blood, Urine Small (Negative); Clarity Clear (Clear); Glucose, Urine (Dipstick) Negative (Negative); Leukocyte Negative (Negative); Nitrite Negative (Negative); Protein, Urine (Dipstick) 30 mg/dL (Neg-Trace); Specific Gravity, Urine 1.015 (1.005-1.030); Urobilinogen 0.2 mg/dL (0.2-1.0); pH, Urine 6.5 (5.0-9.0)
[2017-02-03 12:51] LABS: Bacteria/HPF 1+ HPF (None Seen); Crystals/HPF 2+ AMORPH URATES HPF (Negative); Squamous Epithelial 0-3 HPF (0-3); WBC/HPF 0-3 HPF (0-3)
[2017-02-03 12:53] LABS: ALT (SGPT) 74 U/L (8-55); AST (SGOT) 58 U/L (5-34); Albumin 3.9 g/dL (3.5-5.0); Alkaline Phosphatase 769 U/L (40-150); Anion Gap 18 mmol/L (10-20); BUN (Urea Nitrogen) 14 mg/dL (8.4-25.7); Bilirubin, Total 2.2 mg/dL (0.2-1.2); Calc. Creatinine Clearance 0 mL/min (70-130); Calcium 9.9 mg/dL (7.8-10.44); Carbon Dioxide 24 mmol/L (22-29); Chloride 103 mmol/L (98-107); Estimated GFR-MDRD 45; Globulin 4.7 g/dL (2.4-3.5); Glucose 112 mg/dL (70-105); Potassium 4.4 mmol/L (3.5-5.1); Protein, Total 8.6 g/dL (6.0-8.3); Sodium 141 mmol/L (136-145)
[2017-02-03 12:58] LABS: Band 2 % (5-11); Hemoglobin 11.3 g/dL (14.0-18.0); Lymphocytes 1 % (21-51); MDiff Complete? YES; Mean Corpuscular HGB CONC 31.5 g/dL (32.0-36.0); Mean Corpuscular Hemoglobin 26.7 pg (27.0-31.0); Mean Corpuscular Volume 84.9 fl (80.0-94.0); Mean Platelet Volume 7.8 fL (7.4-10.4); Monocytes 2 % (0-10); Neutrophil 94 % (42-75); PLT Morphology Comment Appears Adequate; Platelet Count 314 thou/uL (130-400); RBC Distribution Width 17.3 % (11.5-14.5); Reactive Lymphocytes 1 % (0-10); Red Blood Cell (RBC) Count 4.24 mill/uL (4.70-6.10); White Blood Cell (WBC) Count 15.4 thou/uL (4.8-10.8)
--- NOTE | 2017-02-03 15:00 | RAD ---
PA AND LATERAL IMAGING OF THE CHEST: DATE: 02/03/17. COMPARISON: 09/23/16. HISTORY: Fever. FINDINGS: There is a vascular catheter on the left, distal tip overlying the region of the cavoatrial junction. No pneumothorax or pleural fluid is seen. There is no lobar consolidation or alveolar edema. Ther e is increased linear density in the perihilar region suggesting pulmonary vasculature prominence. IMPRESSION: No focal consolidation or alveolar edema. No significant interval change. POS: [facility]
== END 2017-02-03 14:08 | disposition short-term general hospital (02) ==
LOC: MADERS 11:32
DX: R50.9 Fever, unspecified (principal); I12.9 Hypertensive chronic kidney disease with stage 1 through stage 4 chronic kidney disease, or unspecified chronic kidney disease; N18.9 Chronic kidney disease, unspecified; F25.9 Schizoaffective disorder, unspecified; Z79.891 Long term (current) use of opiate analgesic; Z79.899 Other long term (current) drug therapy
CPT/HCPCS: 71020; 80053; 81003; 81015; 83605; 85025; 87040; 87077; 87086; 87149; 87186; 96365; J1956; J7050

== ENCOUNTER 2017-04-09 08:13 | Outpatient (CLI) | payer MEDICARE, MEDICAID ==
--- NOTE | 2017-04-09 10:05 | ULT ---
RIGHT UPPER QUADRANT ULTRASOUND: HISTORY: Elevated liver enzymes, abnormal liver function, right-sided colostomy. FINDINGS: The liver demonstrates homogeneous echotexture without focal mass or intrahepatic ductal dilatation. The patient is postcholecystectomy. The common duct measures 2 mm in diameter. The pancreas and ri ght kidney appear normal. No free fluid is seen in the Morison's pouch. Visualized portions of the aorta and IVC are unremarkable. IMPRESSION: Status post cholecystectomy; otherwise, unremarkable exam. POS: [facility]
== END 2017-04-09 08:14 | disposition home or self-care (01) ==
LOC: MADULT 08:13
PROVIDERS: ATTEND Family Medicine
DX: R94.5 Abnormal results of liver function studies (principal); K91.2 Postsurgical malabsorption, not elsewhere classified; Z90.49 Acquired absence of other specified parts of digestive tract
CPT/HCPCS: 76705

== ENCOUNTER 2017-05-11 07:20 | Outpatient (CLI) | payer MEDICARE, MEDICAID ==
[2017-05-11 07:56] LABS: ALT (SGPT) 70 U/L (8-55); AST (SGOT) 97 U/L (5-34); Alkaline Phosphatase 449 U/L (40-150); Anion Gap 12 mmol/L (10-20); BUN (Urea Nitrogen) 9 mg/dL (8.4-25.7); Bilirubin, Total 1.8 mg/dL (0.2-1.2); Calc. Creatinine Clearance 0 mL/min (70-130); Calcium 9.6 mg/dL (7.8-10.44); Carbon Dioxide 27 mmol/L (22-29); Chloride 106 mmol/L (98-107); Estimated GFR-MDRD 63; Globulin 2.9 g/dL (2.4-3.5); Glucose 81 mg/dL (70-105); Potassium 3.8 mmol/L (3.5-5.1); Protein, Total 6.9 g/dL (6.0-8.3); Sodium 141 mmol/L (136-145)
== END 2017-05-11 07:21 | disposition home or self-care (01) ==
LOC: MADLABBHPM 07:20
PROVIDERS: ATTEND Family Medicine
DX: N18.3 Chronic kidney disease, stage 3 (moderate) (principal)
CPT/HCPCS: 36415; 80053

== ENCOUNTER 2017-08-16 15:36 | Outpatient (CLI) | payer MEDICARE, MEDICAID ==
[2017-08-16 16:05] LABS: Hemoglobin 12.1 g/dL (14.0-18.0)
[2017-08-16 16:18] LABS: Anion Gap 17 mmol/L (10-20); BUN (Urea Nitrogen) 10 mg/dL (8.4-25.7); Calc. Creatinine Clearance 0 mL/min (70-130); Calcium 9.6 mg/dL (7.8-10.44); Carbon Dioxide 25 mmol/L (22-29); Chloride 105 mmol/L (98-107); Estimated GFR-MDRD 60; Glucose 126 mg/dL (70-105); Potassium 3.7 mmol/L (3.5-5.1); Sodium 143 mmol/L (136-145)
== END 2017-08-16 15:37 | disposition home or self-care (01) ==
LOC: MADLAB 15:36
PROVIDERS: ATTEND Internal Medicine Nephrology
DX: N18.3 Chronic kidney disease, stage 3 (moderate) (principal); D63.1 Anemia in chronic kidney disease
CPT/HCPCS: 36415; 80048

== ENCOUNTER 2017-10-04 13:37 | Emergency (ER) | payer MEDICARE, MEDICAID | END 2017-10-04 14:38 | disposition home or self-care (01) | LOC: MADERS 13:37 | DX: H10.9 Unspecified conjunctivitis (principal); I10 Essential (primary) hypertension; K59.00 Constipation, unspecified; I12.0 Hypertensive chronic kidney disease with stage 5 chronic kidney disease or end stage renal disease; N18.9 Chronic kidney disease, unspecified; F20.9 Schizophrenia, unspecified | CPT/HCPCS: 99282 ==

== ENCOUNTER 2017-11-07 20:40 | Emergency (ER) | payer MEDICARE, MEDICAID ==
[~2017-11-07 20:40] MED LIST changes: +Iopamidol 370 76% 100 ML VIAL ONE
[2017-11-07] MEDS ORDERED: Ondansetron HCl/PF 4 MG/2 ML Vial ONE ×2 (21:02→21:43)
[2017-11-07] MEDS ORDERED: Ketorolac Tromethamine 30 MG/ML VIAL ONE (21:02)
[2017-11-07 21:18] LABS: #Basophils 0.1 thou/uL (0.0-0.2); #Eosinphils 0.2 thou/uL (0.0-0.7); #Lymphocytes 1.6 thou/uL (1.20-3.40); #Monocytes 0.3 thou/uL (0.11-0.59); #Neutrophils 9.6 thou/uL (1.40-6.50); %Basophils 0.7 % (0.0-1.0); %Eosinophils 1.7 % (0.0-10.0); %Lymphocytes 13.3 % (21.0-51.0); %Monocytes 2.8 % (0.0-10.0); %Neutrophils 81.5 % (42.0-75.0); Hemoglobin 12.4 g/dL (14.0-18.0); Mean Corpuscular HGB CONC 32.6 g/dL (32.0-36.0); Mean Corpuscular Volume 89.1 fL (78.0-98.0); Mean Platelet Volume 8.2 fL (7.4-10.4); Platelet Count 160 thou/uL (130-400); RBC Distribution Width 11.7 % (11.5-14.5); Red Blood Cell (RBC) Count 4.28 mill/uL (4.70-6.10); White Blood Cell (WBC) Count 11.8 thou/uL (4.8-10.8)
[2017-11-07 21:36] LABS: ALT (SGPT) 76 U/L (8-55); AST (SGOT) 57 U/L (5-34); Albumin 4.1 g/dL (3.5-5.0); Alkaline Phosphatase 279 U/L (40-150); Anion Gap 15 mmol/L (10-20); BUN (Urea Nitrogen) 14 mg/dL (8.4-25.7); Bilirubin, Total 1.1 mg/dL (0.2-1.2); Calc. Creatinine Clearance 0 mL/min (70-130); Calcium 9.5 mg/dL (7.8-10.44); Carbon Dioxide 25 mmol/L (22-29); Chloride 105 mmol/L (98-107); Estimated GFR-MDRD 62; Globulin 2.7 g/dL (2.4-3.5); Glucose 105 mg/dL (70-105); Lipase 28 U/L (8-78); Protein, Total 6.8 g/dL (6.0-8.3); Sodium 141 mmol/L (136-145)
--- NOTE | 2017-11-07 22:40 | CT ---
CT ABDOMEN AND PELVIS WITH IV CONTRAST 11/07/17 HISTORY: Abdomen pain. FINDINGS: 12/18/16. FINDINGS: Minimal atelectasis at the lung bases. Stomach remains distended with fluid and gas. Diffuse circumfe rential thickening of the small bowel wall is similar in appearance to the previous exam. Right lower quadrant ostomy with hernia is apparent. It is unchanged in appearance. Gallbladder is surgically ab sent. No evidence of bowel obstruction. Rectum remains distended with fluid. Urinary bladder is decom pressed. IMPRESSION: Postoperative changes and other chronic type findings are stable. No acute abnormalities are demonstr ated to explain abdominal pain. POS: [facility]
[2017-11-07 22:43] LABS: Bilirubin Negative (Negative); Blood, Urine Negative (Negative); Clarity Clear (Clear); Glucose, Urine (Dipstick) Negative (Negative); Leukocyte Negative (Negative); Nitrite Negative (Negative); Protein, Urine (Dipstick) Trace mg/dL (Neg-Trace); Specific Gravity, Urine 1.015 (1.005-1.030); Urobilinogen 0.2 mg/dL (0.2-1.0)
== END 2017-11-07 23:26 | disposition home or self-care (01) ==
LOC: MADERS 20:40
DX: R11.2 Nausea with vomiting, unspecified (principal); R79.89 Other specified abnormal findings of blood chemistry; I12.9 Hypertensive chronic kidney disease with stage 1 through stage 4 chronic kidney disease, or unspecified chronic kidney disease; N18.9 Chronic kidney disease, unspecified; F20.9 Schizophrenia, unspecified
CPT/HCPCS: 74177; 80053; 81003; 83690; 85025; 96361; 96374; 96375; J1885; J2405; J7050

== ENCOUNTER 2017-11-28 07:57 | Outpatient (CLI) | payer MEDICARE, MEDICAID ==
--- NOTE | 2017-11-28 10:13 | ULT ---
COMPLETE ABDOMINAL ULTRASOUND: HISTORY: A 62-year-old male with a history of abnormal LFTs, short gut syndrome, and a prior right-sided colos maranda. Exam is somewhat limited because of poor patient cooperation. Status post cholecystectomy. FINDINGS: Liver echogenicity is within normal limits. Common bile duct is 0.3 cm. No significant intrahepatic ductal dilatation. No focal liver masses. The visualized pancreas, IVC, aorta, and spleen are unre markable. No abscess or abnormal fluid collection. The kidneys appear unremarkable. IMPRESSION: 1. Status post cholecystectomy. 2. No significant ductal dilatation or other acute process. POS: [facility]
== END 2017-11-28 07:58 | disposition home or self-care (01) ==
LOC: MADULT 07:57
PROVIDERS: ATTEND Internal Medicine
DX: K91.2 Postsurgical malabsorption, not elsewhere classified (principal); R93.2 Abnormal findings on diagnostic imaging of liver and biliary tract; R79.89 Other specified abnormal findings of blood chemistry; Z90.49 Acquired absence of other specified parts of digestive tract
CPT/HCPCS: 76700

== ENCOUNTER 2018-09-13 07:21 | Outpatient (CLI) | payer MEDICARE, MEDICAID ==
[2018-09-13 07:46] LABS: Anion Gap 12 mmol/L (10-20); BUN (Urea Nitrogen) 10 mg/dL (8.4-25.7); Calc. Creatinine Clearance 0 mL/min (70-130); Carbon Dioxide 27 mmol/L (22-29); Chloride 108 mmol/L (98-107); Estimated GFR-MDRD 50; Glucose 95 mg/dL (70-105); Potassium 4.2 mmol/L (3.5-5.1); Sodium 143 mmol/L (136-145)
== END 2018-09-13 07:22 | disposition home or self-care (01) ==
LOC: MADLAB 07:21
PROVIDERS: ATTEND Internal Medicine Nephrology
DX: N18.3 Chronic kidney disease, stage 3 (moderate) (principal)
CPT/HCPCS: 36415; 80048

== ENCOUNTER 2018-09-23 14:33 | Outpatient (CLI) | payer MEDICARE, MEDICAID ==
[2018-09-23 14:37] LABS: Anion Gap 11 mmol/L (10-20); BUN (Urea Nitrogen) 11 mg/dL (8.4-25.7); Calc. Creatinine Clearance 0 mL/min (70-130); Carbon Dioxide 27 mmol/L (22-29); Chloride 108 mmol/L (98-107); Estimated GFR-MDRD 64; Glucose 86 mg/dL (70-105); Sodium 142 mmol/L (136-145)
== END 2018-09-23 14:34 | disposition home or self-care (01) ==
LOC: MADLAB 14:33
PROVIDERS: ATTEND Internal Medicine Nephrology
DX: N18.3 Chronic kidney disease, stage 3 (moderate) (principal)
CPT/HCPCS: 36415; 80048

== ENCOUNTER 2020-02-22 08:59 | Emergency (ER) | payer MEDICARE, MEDICAID ==
[2020-02-22] MEDS ORDERED: Ondansetron ODT 4 MG TAB ONE (10:19)
[2020-02-22 10:24] LABS: Anisocytosis SLIGHT = 6-15 cells (100X) (0-5/hpf); Band 35 % (5-11); Eosinophils 1 % (0-10); Hemoglobin 14.5 g/dL (14.0-18.0); Lymphocytes 6 % (21-51); MDiff Complete? YES; Mean Corpuscular HGB CONC 30.6 g/dL (32.0-36.0); Mean Corpuscular Hemoglobin 28.4 pg (27.0-31.0); Mean Corpuscular Volume 92.8 fL (78.0-98.0); Monocytes 7 % (0-10); Neutrophil 51 % (42-75); Platelet Count 185 thou/uL (130-400); Platelet Morphology Comment Appears Adequate; RBC Distribution Width 12.2 % (11.5-14.5); Red Blood Cell (RBC) Count 5.11 mill/uL (4.70-6.10); Target Cells SLIGHT = 2-5 cells (100X) (0-1/hpf); White Blood Cell (WBC) Count 10.8 thou/uL (4.8-10.8)
[2020-02-22 10:28] LABS: ALT (SGPT) 70 U/L (8-55); AST (SGOT) 43 U/L (5-34); Albumin 4.1 g/dL (3.4-4.8); Alkaline Phosphatase 236 U/L (40-110); Anion Gap 18 mmol/L (10-20); BUN (Urea Nitrogen) 12 mg/dL (8.4-25.7); Bilirubin, Total 2.4 mg/dL (0.2-1.2); Calc. Creatinine Clearance 0 mL/min (70-130); Calcium 9.1 mg/dL (7.8-10.44); Carbon Dioxide 24 mmol/L (23-31); Chloride 104 mmol/L (98-107); Globulin 3.3 g/dL (2.4-3.5); Glucose 100 mg/dL (80-115); Lipase 27 U/L (8-78); Potassium 4.1 mmol/L (3.5-5.1); Protein, Total 7.4 g/dL (5.8-8.1); Sodium 142 mmol/L (136-145)
[2020-02-22] MEDS ORDERED: Sodium Chloride 0.9% 1,000 ML ONE (10:38)
[2020-02-22] MEDS ORDERED: Promethazine HCl 25 MG/ML VIAL ONE (11:03)
--- NOTE | 2020-02-22 11:42 | CT ---
CT ABDOMEN AND PELVIS WITHOUT CONTRAST: Date: 02/22/2020 COMPARISON: 12/18/2016, 11/07/2017. HISTORY: Abdominal pain. TECHNIQUE: Multiple contiguous axial images were obtained in a CT of the abdomen and pelvis without contrast. Sa gittal and coronal reformats were performed. FINDINGS: This exam is extremely limited secondary to the patient's paucity of intra-abdominal fat and lack of oral and IV contrast. The patient is status post cholecystectomy. There is an ostomy in the right lower quadrant of the abd omen. No definite focal liver lesions are seen. There is mild stable enlargement of the common bile d uct which may be a reservoir effect from prior cholecystectomy. The kidneys, adrenal glands, spleen, and pancreas are grossly unremarkable. The large and small bowel are normal in caliber. A fluid-filled pouch containing radiodense dependent material in the pelvis likely represents the patient's rectum. There may be prominent mesenteric lymph nodes measuring up to 1.2 cm in size. No free fluid is seen i n the pelvis. No retroperitoneal or pelvic side wall lymphadenopathy is seen. Degenerative changes are seen in the spine. The lung bases are unremarkable. The abdominal wall soft tissues are unremarkable. IMPRESSION: 1. Limited exam without obvious acute intra-abdominal/pelvic abnormality. 2. Possible stable mildly enlarged mesenteric lymph nodes. POS: [facility]
[2020-02-22 12:28] LABS: Lactic Acid 1.7 mmol/L (0.5-2.2)
[2020-02-22 12:29] LABS: Anion Gap 16 mmol/L (10-20); BUN (Urea Nitrogen) 13 mg/dL (8.4-25.7); Calc. Creatinine Clearance 0 mL/min (70-130); Calcium 8.3 mg/dL (7.8-10.44); Carbon Dioxide 22 mmol/L (23-31); Chloride 109 mmol/L (98-107); Glucose 93 mg/dL (80-115); Sodium 143 mmol/L (136-145)
== END 2020-02-22 13:25 | disposition home or self-care (01) ==
LOC: MADERS 08:59
DX: E86.0 Dehydration (principal); E78.5 Hyperlipidemia, unspecified; E78.00 Pure hypercholesterolemia, unspecified; I12.9 Hypertensive chronic kidney disease with stage 1 through stage 4 chronic kidney disease, or unspecified chronic kidney disease; N18.9 Chronic kidney disease, unspecified; Z79.899 Other long term (current) drug therapy; Z79.891 Long term (current) use of opiate analgesic
CPT/HCPCS: 36415; 74176; 80053; 83605; 83690; 85025; 93005; 96365; J2550; J7050; Q0162

== ENCOUNTER 2023-05-06 07:52 | Emergency (ER) | payer MEDICARE, MEDICAID ==
[2023-05-06] MEDS ORDERED: Ondansetron PF 4 MG/2 ML Vial ONE (08:47)
[2023-05-06] MEDS ORDERED: Sodium Chloride 0.9% 1,000 ML ONE (08:48)
[2023-05-06 09:02] LABS: Hematocrit 48.6 % (42.0-52.0); Hemoglobin 14.4 g/dL (14.0-18.0); Mean Corpuscular HGB CONC 29.7 g/dL (32.0-36.0); Mean Corpuscular Hemoglobin 27.8 pg (27.0-31.0); Mean Corpuscular Volume 93.8 fl (78.0-98.0); Mean Platelet Volume 9.4 fL (7.4-10.4); Platelet Count 265 10x3/uL (130-400); Red Blood Cell (RBC) Count 5.18 mill/uL (4.70-6.10); White Blood Cell (WBC) Count 4.7 10x3/uL (4.8-10.8)
[2023-05-06 09:15] LABS: ALT (SGPT) 53 U/L (8-55); AST (SGOT) 34 U/L (5-34); Albumin 4.3 g/dL (3.4-4.8); Alkaline Phosphatase 233 U/L (40-110); Anion Gap 22 mmol/L (10-20); BUN (Urea Nitrogen) 20 mg/dL (8.4-25.7); Bilirubin, Total 1.1 mg/dL (0.2-1.2); Calc. Creatinine Clearance 0 mL/min (70-130); Calcium 10.1 mg/dL (7.8-10.44); Carbon Dioxide 36 mmol/L (23-31); Chloride 98 mmol/L (98-107); Estimated GFR 29; Globulin 3.5 g/dL (2.4-3.5); Glucose 141 mg/dL (80-115); Lipase 11 U/L (8-78); Potassium 3.5 mmol/L (3.5-5.1); Protein, Total 7.8 g/dL (5.8-8.1)
[2023-05-06 09:33] LABS: Band 9 % (5-11); Lymphocytes 19 % (21-51); MDiff Complete? YES; Monocytes 5 % (0-10); Neutrophil 67 % (42-75); Platelet Adequacy Comment Appears Adequate
[2023-05-06 09:40] LABS: Critical Call Chemistry NUR.JP8; Sodium 152 mmol/L (136-145)
[2023-05-06] MEDS ORDERED: Morphine 4 MG/ML VIAL ONE (10:15)
[2023-05-06] MEDS ORDERED: Sodium Chloride 0.45% 1,000 ML ONE (10:15)
[2023-05-06 13:00] LABS: Sodium 150 mmol/L (136-145)
== END 2023-05-06 14:19 | disposition short-term general hospital (02) ==
LOC: MADERS 07:52
DX: E87.0 Hyperosmolality and hypernatremia (principal); E86.0 Dehydration; N17.9 Acute kidney failure, unspecified; I12.9 Hypertensive chronic kidney disease with stage 1 through stage 4 chronic kidney disease, or unspecified chronic kidney disease; N18.9 Chronic kidney disease, unspecified; E78.00 Pure hypercholesterolemia, unspecified; Z79.899 Other long term (current) drug therapy
CPT/HCPCS: 80053; 83605; 83690; 85025; 96361; 96374; 96375; J2270; J2405; J7050

== ENCOUNTER 2023-05-31 11:48 | Outpatient (CLI) | payer MEDICARE, MEDICAID | END 2023-05-31 11:49 | disposition home or self-care (01) | LOC: MADRAD 11:48 | PROVIDERS: ATTEND Family Medicine | DX: J69.0 Pneumonitis due to inhalation of food and vomit (principal) | CPT/HCPCS: 71046 ==

== ENCOUNTER 2023-07-26 11:29 | Emergency (ER) | payer MEDICARE, MEDICAID ==
[2023-07-26] MEDS ORDERED: Lactated Ringer's 1,000 ML ONE ×3 (12:12→15:01)
[2023-07-26 12:30] LABS: Hematocrit 50.4 % (42.0-52.0); Hemoglobin 14.3 g/dL (14.0-18.0); Mean Corpuscular HGB CONC 28.4 g/dL (32.0-36.0); Mean Corpuscular Hemoglobin 27.6 pg (27.0-31.0); Mean Corpuscular Volume 97.1 fl (78.0-98.0); Platelet Count 192 10x3/uL (130-400); RBC Distribution Width 13.9 % (11.5-14.5); Red Blood Cell (RBC) Count 5.19 mill/uL (4.70-6.10); White Blood Cell (WBC) Count 14.9 10x3/uL (4.8-10.8)
[2023-07-26 12:31] LABS: PTT 23.8 sec (22.9-36.1)
[2023-07-26 12:36] LABS: Manual Diff?? YES
[2023-07-26 12:37] LABS: Anisocytosis SLIGHT = 6-15 cells (100X) (0-5/hpf); Band 18 % (5-11); Eosinophils 2 % (0-10); Lymphocytes 15 % (21-51); MDiff Complete? YES; Monocytes 4 % (0-10); Neutrophil 61 % (42-75)
[2023-07-26 12:38] LABS: Platelet Adequacy Comment Appears Adequate
[2023-07-26 12:41] LABS: ALT (SGPT) 50 U/L (8-55); AST (SGOT) 25 U/L (5-34); Albumin 4.1 g/dL (3.4-4.8); Alkaline Phosphatase 218 U/L (40-110); Anion Gap 28 mmol/L (10-20); BUN (Urea Nitrogen) 56 mg/dL (8.4-25.7); Bilirubin, Total 2.4 mg/dL (0.2-1.2); Calc. Creatinine Clearance 0 mL/min (70-130); Calcium 9.8 mg/dL (7.8-10.44); Carbon Dioxide 15 mmol/L (23-31); Chloride 103 mmol/L (98-107); Estimated GFR 8; Globulin 3.7 g/dL (2.4-3.5); Glucose 116 mg/dL (80-115); Lipase 25 U/L (8-78); Magnesium 2.2 mg/dL (1.6-2.6); Potassium 5.3 mmol/L (3.5-5.1); Protein, Total 7.8 g/dL (5.8-8.1); Sodium 141 mmol/L (136-145)
[2023-07-26] MEDS ORDERED: Prochlorperazine 10 MG/2 ML VIAL ONE (12:54)
[2023-07-26 15:10] LABS: Lactic Acid 5.6 mmol/L (0.5-2.2)
[2023-07-26] MEDS ORDERED: LevoFLOXacin 750 mg/D5W 150 ml Premix Bag ONE (15:12)
[2023-07-26] MEDS ORDERED: metroNIDAZOLE 500 MG (100 mL) BAG ONE (15:16)
[2023-07-27 13:04] LABS: Campy jejuni + coli by PCR Negative (Negative); STEC Shiga Toxin 1+2 Negative (Negative); Salmonella spp. by PCR Negative (Negative); Shigella spp + EIEC by PCR Negative (Negative)
== END 2023-07-26 15:35 | disposition short-term general hospital (02) ==
LOC: MADERS 11:29
DX: N17.9 Acute kidney failure, unspecified (principal); R19.7 Diarrhea, unspecified; A41.9 Sepsis, unspecified organism; E87.20 Acidosis, unspecified; I12.9 Hypertensive chronic kidney disease with stage 1 through stage 4 chronic kidney disease, or unspecified chronic kidney disease; N18.9 Chronic kidney disease, unspecified
CPT/HCPCS: 36415; 74176; 80053; 82550; 83605; 83690; 83735; 85025; 85610; 85730; 87040; 87324; 87449; 87505; 93005; 94760; 96361; 96365; 96375; J0780; J1956; J7120

== ENCOUNTER 2023-09-04 10:42 | Emergency (ER) | payer MEDICARE, MEDICAID ==
[~2023-09-04 10:42] MED LIST changes: -Sodium Chloride 0.9% 1,000 ML BAG ONE
[2023-09-04] MEDS ORDERED: Sodium Chloride 0.9% 1,000 ML ONE (11:28)
[2023-09-04] MEDS ORDERED: Ondansetron PF 4 MG/2 ML Vial ONE (11:28)
[2023-09-04 11:38] LABS: Hematocrit 50.7 % (42.0-52.0); Hemoglobin 14.9 g/dL (14.0-18.0); Mean Corpuscular HGB CONC 29.4 g/dL (32.0-36.0); Mean Corpuscular Hemoglobin 27.6 pg (27.0-31.0); Mean Platelet Volume 9.2 fL (7.4-10.4); Platelet Count 173 10x3/uL (130-400); RBC Distribution Width 13.8 % (11.5-14.5); Red Blood Cell (RBC) Count 5.39 mill/uL (4.70-6.10)
[2023-09-04 11:50] LABS: Troponin I 0.023 ng/mL (< 0.028)
[2023-09-04 11:52] LABS: MDiff Complete? YES; Manual Diff?? YES
[2023-09-04 11:53] LABS: Anisocytosis SLIGHT = 6-15 cells (100X) (0-5/hpf); Lymphocytes 9 % (21-51); Monocytes 9 % (0-10); Platelet Adequacy Comment Appears Adequate
[2023-09-04 11:56] LABS: Band 25 % (5-11); Neutrophil 57 % (42-75)
[2023-09-04 12:53] LABS: ALT (SGPT) 111 U/L (8-55); AST (SGOT) 52 U/L (5-34); Albumin 4.3 g/dL (3.4-4.8); Alkaline Phosphatase 233 U/L (40-110); Anion Gap 31 mmol/L (10-20); BUN (Urea Nitrogen) 29 mg/dL (8.4-25.7); Bilirubin, Total 2.6 mg/dL (0.2-1.2); Calc. Creatinine Clearance 0 mL/min (70-130); Calcium 9.5 mg/dL (7.8-10.44); Carbon Dioxide 19 mmol/L (23-31); Chloride 92 mmol/L (98-107); Estimated GFR 13; Globulin 3.7 g/dL (2.4-3.5); Glucose 148 mg/dL (80-115); Lipase 197 U/L (8-78); Magnesium 1.9 mg/dL (1.6-2.6); Potassium 4.1 mmol/L (3.5-5.1); Sodium 138 mmol/L (136-145)
[2023-09-04] MEDS ORDERED: LevoFLOXacin 750 mg/D5W 150 ml Premix Bag ONE (13:13)
[2023-09-04] MEDS ORDERED: Sodium Chloride 0.9% 2,000 ML ONE (13:13)
[2023-09-04] MEDS ORDERED: metroNIDAZOLE 500 MG (100 mL) BAG ONE (13:13)
[2023-09-04 14:15] LABS: Base Excess-Venous -5.9 mmol/L (-2.0 to 3.0); Bicarbonate (HCO3v) 20.2 mmol/L (22.0-28.0); CO2 Tension (PvCO2) 40.7 mmHg (42.0-51.0); Calcium, Ionized 0.88 mmol/L (1.15-1.33); Chloride 110 mmol/L (98-107); Hemoglobin - Calc 13.2 g/dL (14.0-18.0); Potassium 3.8 mmol/L (3.5-5.1); Sodium 141 mmol/L (138-145); T. Carbon Dioxide 21.4 mmol/L (22.0-28.0)
[2023-09-04] MEDS ORDERED: Lactated Ringer's 1,000 ML ONE (14:41)
[2023-09-04 15:01] LABS: Influenza A by NAA Not Detected (NotDetected); Influenza B by NAA Not Detected (NotDetected); SARS-CoV-2 NAA Rapid Test Not Detected (NotDetected)
[2023-09-05 06:12] LABS: Campy jejuni + coli by PCR Negative (Negative); STEC Shiga Toxin 1+2 Negative (Negative); Salmonella spp. by PCR Negative (Negative); Shigella spp + EIEC by PCR Negative (Negative)
== END 2023-09-04 16:14 | disposition short-term general hospital (02) ==
LOC: MADERS 10:42
DX: A41.9 Sepsis, unspecified organism (principal); R65.20 Severe sepsis without septic shock; K52.9 Noninfective gastroenteritis and colitis, unspecified; E87.20 Acidosis, unspecified; R86.0 Abnormal level of enzymes in specimens from male genital organs; R74.01 Elevation of levels of liver transaminase levels; E78.5 Hyperlipidemia, unspecified; I12.9 Hypertensive chronic kidney disease with stage 1 through stage 4 chronic kidney disease, or unspecified chronic kidney disease; N18.9 Chronic kidney disease, unspecified
CPT/HCPCS: 71045; 74177; 80053; 82330; 82803; 83605; 83690; 83735; 83880; 84484; 85025; 87040; 87324; 87449; 87505; 93005; 96361; 96365; 96366; 96367; 96375; J1956; J2405; J7050; J7120; Q9967

== ENCOUNTER 2024-04-02 08:25 | Emergency (ER) | payer MEDICARE, MEDICAID ==
[2024-04-02] MEDS ORDERED: Acetaminophen 500 MG TAB ONE (09:20)
[2024-04-02] MEDS ORDERED: Sodium Chloride 0.9% 1,000 ML ONE (09:20)
[2024-04-02 10:00] LABS: Hematocrit 38.7 % (42.0-52.0); Hemoglobin 12.2 g/dL (14.0-18.0); Mean Corpuscular HGB CONC 31.5 g/dL (32.0-36.0); Mean Corpuscular Hemoglobin 29.3 pg (27.0-31.0); Mean Corpuscular Volume 93.2 fl (78.0-98.0); Mean Platelet Volume 9.3 fL (7.4-10.4); Platelet Count 131 10x3/uL (130-400); RBC Distribution Width 13.8 % (11.5-14.5); Red Blood Cell (RBC) Count 4.15 mill/uL (4.70-6.10); White Blood Cell (WBC) Count 9.4 10x3/uL (4.8-10.8)
[2024-04-02 10:09] LABS: ALT (SGPT) 104 U/L (8-55); AST (SGOT) 94 U/L (5-34); Albumin 3.3 g/dL (3.4-4.8); Alkaline Phosphatase 217 U/L (40-110); Anion Gap 11 mmol/L (10-20); BUN (Urea Nitrogen) 15 mg/dL (8.4-25.7); Bilirubin, Total 1.5 mg/dL (0.2-1.2); Calc. Creatinine Clearance 0 mL/min (70-130); Calcium 8.6 mg/dL (7.8-10.44); Carbon Dioxide 23 mmol/L (23-31); Chloride 108 mmol/L (98-107); Estimated GFR 40; Globulin 3.2 g/dL (2.4-3.5); Glucose 83 mg/dL (80-115); Lipase 15 U/L (8-78); Magnesium 1.5 mg/dL (1.6-2.6); Potassium 3.9 mmol/L (3.5-5.1); Protein, Total 6.5 g/dL (5.8-8.1); Sodium 138 mmol/L (136-145)
[2024-04-02 10:10] LABS: Anisocytosis SLIGHT = 6-15 cells (100X) (0-5/hpf); Band 11 % (5-11); Lymphocytes 9 % (21-51); MDiff Complete? YES; Manual Diff?? YES; Monocytes 3 % (0-10); Neutrophil 77 % (42-75); Platelet Adequacy Comment Appears Adequate
[2024-04-02 12:05] LABS: Bilirubin Negative (Negative); Blood, Urine Negative (Negative); Clarity Clear (Clear); Glucose, Urine (Dipstick) Negative (Negative); Ketone, Urine Negative (Negative); Leukocyte Negative (Negative); Nitrite Negative (Negative); Protein, Urine (Dipstick) 30 mg/dL (Neg-Trace); Specific Gravity, Urine 1.025 (1.005-1.030); Urobilinogen 0.2 mg/dL (Less than 2)
[2024-04-02 12:07] LABS: CAUTI Indications for Culture Fever or rigors; Mucous/LPF Rare LPF (<2+); RBC/HPF 0-3 HPF (0-3); Squamous Epithelial 0-3 HPF (0-3); WBC/HPF 0-3 HPF (0-3)
[2024-04-02 12:08] LABS: Urine Culture Reflex No No
== END 2024-04-02 13:00 | disposition home or self-care (01) ==
LOC: MADERS 08:25
DX: J10.1 Influenza due to other identified influenza virus with other respiratory manifestations (principal); I12.9 Hypertensive chronic kidney disease with stage 1 through stage 4 chronic kidney disease, or unspecified chronic kidney disease; N18.9 Chronic kidney disease, unspecified; N17.9 Acute kidney failure, unspecified; I25.10 Atherosclerotic heart disease of native coronary artery without angina pectoris; Z79.899 Other long term (current) drug therapy
CPT/HCPCS: 71046; 80053; 81001; 83605; 83690; 83735; 85025; 87081; 87400; 87426; 87430; 96360; J7030

== ENCOUNTER 2024-07-31 11:41 | Emergency (ER) | payer MEDICARE, MEDICAID ==
[2024-07-31] MEDS ORDERED: Sodium Chloride 0.9% 1,000 ML ONE (12:27)
[2024-07-31] MEDS ORDERED: Ondansetron PF 4 MG/2 ML Vial ONE (12:27)
[2024-07-31 12:58] LABS: Band 26 % (5-11); Hematocrit 39.6 % (42.0-52.0); Hemoglobin 11.7 g/dL (14.0-18.0); Hypochromia SLIGHT = 6-15 cells (100X) (0-5/hpf); Lymphocytes 12 % (21-51); MDiff Complete? YES; Mean Corpuscular HGB CONC 29.4 g/dL (32.0-36.0); Mean Corpuscular Hemoglobin 27.8 pg (27.0-31.0); Mean Corpuscular Volume 94.3 fl (78.0-98.0); Mean Platelet Volume 6.8 fL (7.4-10.4); Monocytes 5 % (0-10); Myelocyte 1 % (0-0); Neutrophil 53 % (42-75); Platelet Adequacy Comment Appears Adequate; Platelet Count 294 10x3/uL (130-400); RBC Distribution Width 12.7 % (11.5-14.5); White Blood Cell (WBC) Count 10.8 10x3/uL (4.8-10.8)
[2024-07-31 13:00] LABS: ALT (SGPT) 44 U/L (Less than 45); AST (SGOT) 39 U/L (11-34); Albumin 3.6 g/dL (3.1-4.5); Alkaline Phosphatase 140 U/L (40-110); Anion Gap 16 mmol/L (10-20); BUN (Urea Nitrogen) 48 mg/dL (8.4-25.7); Bilirubin, Total 1.3 mg/dL (0.3-1.2); Calc. Creatinine Clearance 0 mL/min (70-130); Calcium 9.6 mg/dL (7.8-10.44); Carbon Dioxide 28 mmol/L (23-31); Chloride 96 mmol/L (98-107); Estimated GFR 20; Globulin 3.9 g/dL (2.4-3.5); Glucose 127 mg/dL (80-115); Lipase 51 U/L (8-78); Magnesium 2.3 mg/dL (1.6-2.6); Potassium 3.9 mmol/L (3.5-5.1); Protein, Total 7.5 g/dL (5.8-8.1); Sodium 136 mmol/L (136-145)
[2024-07-31] MEDS ORDERED: Diphenoxylate HCl/Atropine Tablet ONE (17:44)
== END 2024-07-31 18:14 | disposition short-term general hospital (02) ==
LOC: MADERS 11:41
DX: N17.9 Acute kidney failure, unspecified (principal); I12.9 Hypertensive chronic kidney disease with stage 1 through stage 4 chronic kidney disease, or unspecified chronic kidney disease; N18.9 Chronic kidney disease, unspecified
CPT/HCPCS: 74176; 80053; 83690; 83735; 85025; 96361; 96374; J2405; J7030

== ENCOUNTER 2024-10-09 08:13 | Outpatient (CLI) | payer MEDICARE, MEDICAID ==
[2024-10-09 09:17] LABS: Anion Gap 13 mmol/L (10-20); BUN (Urea Nitrogen) 19 mg/dL (8.4-25.7); Calc. Creatinine Clearance 0 mL/min (70-130); Calcium 9.4 mg/dL (7.8-10.44); Carbon Dioxide 27 mmol/L (23-31); Chloride 107 mmol/L (98-107); Glucose 76 mg/dL (80-115); Potassium 4.7 mmol/L (3.5-5.1); Sodium 142 mmol/L (136-145)
[2024-10-09 09:19] LABS: Hematocrit 35.8 % (42.0-52.0); Hemoglobin 10.9 g/dL (14.0-18.0)
== END 2024-10-09 08:14 | disposition home or self-care (01) ==
LOC: MADLAB 08:13
PROVIDERS: ATTEND Internal Medicine Nephrology
DX: N18.9 Chronic kidney disease, unspecified (principal); D63.1 Anemia in chronic kidney disease; E55.9 Vitamin D deficiency, unspecified; R53.83 Other fatigue
CPT/HCPCS: 36415; 80048; 82306; 85014; 85018